=== PATIENT | male | born 1990 | race Two or more races ===

== ENCOUNTER 2024-11-28 03:22 | Emergency (ER) | payer OTHER, SELFPAY ==
[2024-11-28] VITALS (11 sets, daily range): BP systolic 109–142; BP diastolic 71–99; PULSE 77–96; RESP 14–16; TEMP 36.7–37; O2SAT 96–100; BMI 30.9
--- NOTE | 2024-11-28 03:44 | EKG12_ITS ---
Test Reason : CP Blood Pressure : */* mmHG Vent. Rate : 80 BPM Atrial Rate : 80 BPM P-R Int : 166 ms QRS Dur : 98 ms QT Int : 372 ms P-R-T Axes : 44 50 49 degrees QTcB Int : 429 ms Normal sinus rhythm Normal ECG Confirmed by JO-ANN TATUM, BRIELLE ([id number]), dealer accounts investigator ANUP WHEELER ([id number]) on 11/30/2024 1:19:50 PM Referred By: ABHISHEK Confirmed By: BRIELLE BUSCH MD
[2024-11-28 03:54] LABS: Hematocrit 44.9 % (40-54); Hemoglobin 14.9 g/dL (13.0-16.5); Immature Granulocytes Count 0.040 X10^3/uL (0.0-0.0); Mean Corp Hgb Conc 33.2 g/dL (32-36); Mean Corpuscular Volume 78.2 fL (80-94); Mean Platelet Vol. 9.4 fl (6.2-12.0); NRBC Flagged by Analyzer 0 % (0-5); Platelet Count 292 K/mm3 (150-450); RBC Distribution Width CV 13.6 % (11.6-14.6); RBC Distribution Width SD 38.5 fl (35.1-43.9); Red Blood Count 5.74 M/mm3 (4.6-6.2); White Blood Count 8.3 K/mm3 (4.4-11.0)
[2024-11-28] MEDS: 0.9% Normal Saline (1000mL) 1,000 ML 1000 ML IV (03:57)
[2024-11-28 04:17] LABS: AST(SGOT) 17 U/L (<=37); Alanine Aminotransfer ALT/SGPT 27 U/L (<=46); Albumin, Serum 5.2 g/dL (3.5-5.0); Alkaline Phosphatase 74 U/L (40-129); Anion Gap 15 (5-15); BUN 9 mg/dL (4-19); BUN/Creat Ratio 8.1 RATIO (10-20); Calcium,Total 9.8 mg/dL (7.6-11.0); Carbon Dioxide 19.9 mmol/L (21.0-32.0); Chloride 104 mmol/L (98-108); Estimated Creatinine Clearance 103.92 ml/min (50-250); Globulin 3.0 g/dL (2.2-4.2); Glucose 92 mg/dL (70-99); Lipase 60 U/L (13-75); Potassium 3.7 mmol/L (3.3-5.1)
--- NOTE | 2024-11-28 04:24 | EDS_ITS ---
HPI <Dr. Arelis Stevens, DO - Last Filed: 11/28/24 07:58> History of Present Illness Chief Complaint: Chest Pain Informant: patient and EMS Narrative Narrative: Patient is a 34-year-old male with history of anxiety, H. pylori infection, back pain and recurrent episodes of abdominal pain, left-sided abdominal pain as well as chest pain. This is the patient's fifth ER visit in the past 4 days for similar symptoms. He was seen twice at [facility] in [facility] for active retching, nausea and vomiting. He was treated with droperidol, Benadryl and fluids as well as lab work, EKG. His total bili was minimally elevated at 1.9 he had a negative COVID-19 influenza swab. I was discharged home and thought to questionably have hyperemesis syndrome however he only reports intermittent THC use. He does have an appointment with [facility]olin[facility] L[facility], Dr. Cathleen Carrillo on 12/02/2024. Per documentation patient is supposed to be on a course of Amoxil and clarithromycin starting on 11/24 through 12/04 presumably for treatment of H. pylori. Does not seem that patient is currently taking this however. Patient then went to [facility] 2 days ago and was admitted on the fourth for left-sided lateral chest pain is worse with deep breathing, epigastric pain and a syncopal episode. Was thought to have acute gastroenteritis versus gastritis and ultimately discharged home. Started on Protonix and Carafate. Delta high-sensitivity troponin was normal. Return to the ER last night (11/27/2024 in the evening) for similar symptoms again. He had a CTA of his chest as well as CT of his abdomen pelvis which did not show any acute process. Patient states he wanted to admit him again but he was not feeling any better and did not feel comfortable staying there so he went home but at some point called 911 and was brought to our emergency room. States that he has been in [place] area for about 8 months before that was living in [facility]. Did seek pain management for his back pain at that time. Has a hard time telling me if anything is acute or changed or why exactly he came to the ER tonight. Does report that his blood sugar was 64 for EMS and they did give him oral glucose before coming in as well as Zofran. Patient tells me that he did have COVID-19 through a positive home test about 2 weeks ago. He also tells me that the most recent time that he was treated for H. pylori was closer to 6 months ago. He does not remember if he was on an entire course for how long he took it. He notes he did have Motrin around midnight tonight. Prior similar symptoms: Yes Recent Illness/Hospitalization: Yes PFSH <Dr. Arelis Stevens, DO - Last Filed: 11/28/24 07:58> PFSH Home Medications ?Medication ?Instructions ?Recorded ?Last Taken ?Type famotidine 40 mg tablet (Pepcid) 40 mg PO DAILY #30 ta bs 11/28/12 11/27/24 Rx prochlorperazine maleate 10 mg 10 mg PO TID PRN PRN Unknown Rx tablet Nausea/Vomiting #20 tabs doxycycline monohydrate 100 mg 100 mg PO BID ##20 12/2511/27/24 Rx capsule (Monodox) hydrocodone-acetaminophen 5-325mg 1 tab PO Q6H PRN PRN Pain 3 days 11/28/24 Unknown Rx 5mg-325mg #10 TABLETS Allergy/AdvReac Type Severity Reaction Status Date / Time promethazine HCl (From AdvReac Nausea Verified 11/28/24 03:32 Phenergan) Family History no significant family his Surgical History Hx of appendectomy Hx of adenoidectomy Social History Smoking Status: Never smoker ROS <Dr. Arelis Stevens, DO - Last Filed: 11/28/24 07:58> ROS ED Constitutional Constitutional ED: Reports sweats; Denies chills or fever(s) Cardiovascular Cardiovascular: Reports chest pain; Denies palpitations Respiratory/Chest Respiratory/Chest: Reports dyspnea; Denies cough Gastrointestinal Gastrointestinal: Reports abdominal pain, nausea and vomiting; Denies diarrhea or melena Musculoskeletal Musculoskeletal: Reports back pain; Denies arthralgias Integumentary Denies rash Neurologic Neurologic: Reports weakness Psychiatric Psychiatric: Reports anxiety EXAM <Dr. Arelis Stevens, DO - Last Filed: 11/28/24 07:58> Physical Exam Const Vital Signs: 11/28/24 03:24 11/28/24 04:23 11/28/24 05:00 Temperature 98.6 F Temperature Source Oral Pulse Rate 89 80 81 Respiratory Rate 16 16 16 Blood Pressure 136/73 H 110/80 124/80 H Blood Pressure Mean 94 90 94 Pulse Ox 97 99 96 Oxygen Delivery Method Room Air Room Air Room Air 11/28/24 06:00 11/28/24 07:25 11/28/24 08:00 Temperature Temperature Source Pulse Rate 82 96 88 Respiratory Rate 16 14 16 Blood Pressure 117/72 124/84 H 124/71 H Blood Pressure Mean 87 97 88 Pulse Ox 100 98 100 Oxygen Delivery Method Room Air Room Air Room Air 11/28/24 09:00 11/28/24 10:00 11/28/24 11:00 Temperature Temperature Source Pulse Rate 77 77 88 Respiratory Rate 14 14 14 Blood Pressure 121/90 H 109/76 142/99 H Blood Pressure Mean 100 87 113 Pulse Ox 98 98 100 Oxygen Delivery Method Room Air Room Air Room Air Positive well nourished and well developed General Appearance ED: well developed and NAD HEENT Reports dry mucous membranes Mouth ED: Yes dry mucous membranes Mouth: dry mucous membranes Eyes General Eye ED: Negative for scleral icterus Neck supple and no JVD Chest Wall inspection of chest normal and palpation of chest normal Resp normal respiratory effort and clear to auscultation bilaterally Cardio regular rate, regular rhythm and no murmurs GI non-distended Inspection: Negative for abdominal distention Auscultation: normoactive bowel sounds Palpation: soft and tender epigastric and periumbilical; Negative for guarding Back/Spine no CVA tenderness Thoracic Spine / Upper Back: Negative for thoracic spinal tenderness Lumbar Spine / Lower Back: Negative for lumbar spinal tenderness Extremity normal to inspection General Extremety ED: Negative for edema General Extremity: Negative for edema Neuro oriented x3 Sensorium / Orientation: alert Motor Exam: general weakness Psych Psych Narrative: Patient mildly anxious. Intermittently is confused versus not forthcoming about his recent medical history however he does not seem to be purposely deceptive. Skin no rashes or lesions noted and no wounds General Skin Exam: Negative for jaundice <Dr. Gavino Barrios MD - Last Filed: 11/28/24 12:49> Physical Exam Const Vital Signs: 11/28/24 03:24 11/28/24 04:23 11/28/24 05:00 Temperature 98.6 F Temperature Source Oral Pulse Rate 89 80 81 Respiratory Rate 16 16 16 Blood Pressure 136/73 H 110/80 124/80 H Blood Pressure Mean 94 90 94 Pulse Ox 97 99 96 Oxygen Delivery Method Room Air Room Air Room Air 11/28/24 06:00 11/28/24 07:25 11/28/24 08:00 Temperature Temperature Source Pulse Rate 82 96 88 Respiratory Rate 16 14 16 Blood Pressure 117/72 124/84 H 124/71 H Blood Pressure Mean 87 97 88 Pulse Ox 100 98 100 Oxygen Delivery Method Room Air Room Air Room Air 11/28/24 09:00 11/28/24 10:00 11/28/24 11:00 Temperature Temperature Source Pulse Rate 77 77 88 Respiratory Rate 14 14 14 Blood Pressure 121/90 H 109/76 142/99 H Blood Pressure Mean 100 87 113 Pulse Ox 98 98 100 Oxygen Delivery Method Room Air Room Air Room Air [facility] <Dr. Arelis Stevens, DO - Last Filed: 11/28/24 07:58> [facility] Narrative Medical decision making narrative: Patient is evaluated for recurrent abdominal pain, left back pain (he states this is chronic) as well as left-sided chest pain. Does not know his family history as he is adopted but denies any known cardiac history. This is his fifth ER visit in the past 5 days for similar complaints. He has had prior lab work, troponins, EKGs, CT of the chest as well as CT abdomen pelvis which have all largely been normal. Total bilirubin is slightly uptrending from 1.9 to now 2.5. Work is otherwise largely been unremarkable. He does test positive for cannabis. Chart review does show that he has a history of H. pylori and was prescribed amoxicillin and clarithromycin for 10-day supply on 11/24 but does not sound like patient is actively taking it. In addition he has been prescribed Protonix, Carafate, Zofran and Phenergan. He states he still has a lot of nausea. Differential includes is not limited to hyperemesis syndrome, gastric ulcer, pancreatitis, biliary colic, choledocholithiasis, psychogenic cause. Patient is she given IV fluids, Zofran and Ativan. On repeat evaluation he is sleeping but when he wakes up he states he still nauseous. Lab work today shows mild elevation of his total bilirubin at 2.5 but otherwise normal. He does have 50 ketones in his urine but no signs of infection. Creatinine 1.20 on 11/24. Patient given GI cocktail but it starts having dry heaves again. Is given additional Reglan for further nausea control. Right upper quadrant ultrasound is pending at this time given that he does have a mild elevation of his total bilirubin 1 note clinical significance. As he had a CTA of his chest as well as a CT of his abdomen pelvis yesterday I do not think this needs to be repeated. Anticipate if patient continues to have severe symptoms unable to tolerate p.o. challenge will need admission for intractable nausea/vomiting and abdominal pain and for inpatient GI evaluation. Ultrasound does not show any acute process. Patient is now more tearful appearing expresses that he is feeling depressed because his mother a year ago. Will obtain social work evaluation. Patient signed out to oncoming physician pending social work recs. Patient has complained of nausea but has not had any vomiting in the emergency room. Question if this is more somatic symptoms. Lab Data Attestation: I reviewed the patient's lab results. Labs: Laboratory Results - last 24 hr 11/28/24 11/28/24 11/28/24 02:50 04:47 05:18 WBC 8.3 RBC 5.74 Hgb 14.9 Hct 44.9 MCV 78.2 L MCH 26.0 L MCHC 33.2 RDW Std Deviation 38.5 RDW Coeff of Rolando 13.6 Plt Count 292 MPV 9.4 Immature Gran % (Auto) 0.500 Neut % (Auto) 62.1 Lymph % (Auto) 31.4 [place] % (Auto) 4.9 Eos % (Auto) 0.6 Baso % (Auto) 0.5 Absolute Neuts (auto) 5.2 Absolute Lymphs (auto) 2.60 Nucleated RBC % 0 Sodium 139 Potassium 3.7 Chloride 104 Carbon Dioxide 19.9 L Anion Gap 15 BUN 9 Creatinine 1.15 Estim Creat Clear Calc 103.92 Est GFR (MDRD) Non-Af 86 BUN/Creatinine Ratio 8.1 L Glucose 92 Calcium 9.8 Total Bilirubin 2.50 H AST 17 ALT 27 Alkaline Phosphatase 74 Total Creatine Kinase 70 Troponin T High Sens < 6 Troponin T Hi Sens 2 Hr < 6 Total Protein 8.1 Albumin 5.2 H Globulin 3.0 Albumin/Globulin Ratio 1.8 Lipase 60 Urine Color Yellow Urine Clarity Clear Urine pH 6.5 Ur Specific [place] 1.010 Urine Protein 15 H Urine Glucose (UA) Normal Urine Ketones 50 H Urine Occult Blood 10 H Urine Nitrite Negative Urine Bilirubin Negative Urine Urobilinogen 1 H Ur Leukocyte Esterase Negative Urine RBC 0-5 SEEN Urine WBC 0-5 SEEN Ur Squamous Epith Cells 0 SEEN Urine Bacteria 0 SEEN Urine Mucus 0 SEEN Urine Opiates Screen NEGATIVE U Buprenorphine Qual NEGATIVE Ur Oxycodone Screen NEGATIVE Urine Methadone Screen NEGATIVE Urine Fentanyl Screen NEGATIVE Ur Barbiturates Screen NEGATIVE Ur Phencyclidine Scrn NEGATIVE Ur Amphetamines Screen NEGATIVE U Benzodiazepines Scrn NEGATIVE Urine Cocaine Screen NEGATIVE U Cannabinoids Screen PRESUMPTIVE POSITIVE 11/28/24 08:00 WBC RBC Hgb Hct MCV MCH MCHC RDW Std Deviation RDW Coeff of Rolando Plt Count MPV Immature Gran % (Auto) Neut % (Auto) Lymph % (Auto) [place] % (Auto) Eos % (Auto) Baso % (Auto) Absolute Neuts (auto) Absolute Lymphs (auto) Nucleated RBC % Sodium Potassium Chloride Carbon Dioxide Anion Gap BUN Creatinine Estim Creat Clear Calc Est GFR (MDRD) Non-Af BUN/Creatinine Ratio Glucose Calcium Total Bilirubin AST ALT Alkaline Phosphatase Total Creatine Kinase Troponin T High Sens 11 D Troponin T Hi Sens 2 Hr Total Protein Albumin Globulin Albumin/Globulin Ratio Lipase Urine Color Urine Clarity Urine pH Ur Specific [place] Urine Protein Urine Glucose (UA) Urine Ketones Urine Occult Blood Urine Nitrite Urine Bilirubin Urine Urobilinogen Ur Leukocyte Esterase Urine RBC Urine WBC Ur Squamous Epith Cells Urine Bacteria Urine Mucus Urine Opiates Screen U Buprenorphine Qual Ur Oxycodone Screen Urine Methadone Screen Urine Fentanyl Screen Ur Barbiturates Screen Ur Phencyclidine Scrn Ur Amphetamines Screen U Benzodiazepines Scrn Urine Cocaine Screen U Cannabinoids Screen Radiography Chest X-Ray - ED: 2 View, Read by ED Physician, Read by Radiologist and No Acute Disease Diagnostic Testing: Clinical Impression(s) from Imaging Studies Chest X-Ray 11/28/24 04:25 IMPRESSION: Hypoventilation. Subsegmental atelectasis left lung base. Reading Location: [facility] Gallbladder Ultrasound 11/28/24 06:35 IMPRESSION: No acute abnormality. No significant biliary ductal dilation. Reading Location: [id number] Rhythm Strip Rhythm Strip: Sinus Rhythm Rate: 80 Ectopy: None EKG Initial EKG: Attestation: I personally reviewed and interpreted this EKG as follows: Interpretation: Sinus Rhythm Comments: Normal sinus rhythm at a rate of 80 bpm Normal axis, normal intervals Normal ST segments Management Discussion w/another healthcare provider: mission worker/Case management <Dr. Gavino Barrios MD - Last Filed: 11/28/24 12:49> MDM Lab Data Labs: Laboratory Results - last 24 hr 11/28/24 11/28/24 11/28/24 02:50 04:47 05:18 WBC 8.3 RBC 5.74 Hgb 14.9 Hct 44.9 MCV 78.2 L MCH 26.0 L MCHC 33.2 RDW Std Deviation 38.5 RDW Coeff of Rolando 13.6 Plt Count 292 MPV 9.4 Immature Gran % (Auto) 0.500 Neut % (Auto) 62.1 Lymph % (Auto) 31.4 [place] % (Auto) 4.9 Eos % (Auto) 0.6 Baso % (Auto) 0.5 Absolute Neuts (auto) 5.2 Absolute Lymphs (auto) 2.60 Nucleated RBC % 0 Sodium 139 Potassium 3.7 Chloride 104 Carbon Dioxide 19.9 L Anion Gap 15 BUN 9 Creatinine 1.15 Estim Creat Clear Calc 103.92 Est GFR (MDRD) Non-Af 86 BUN/Creatinine Ratio 8.1 L Glucose 92 Calcium 9.8 Total Bilirubin 2.50 H AST 17 ALT 27 Alkaline Phosphatase 74 Total Creatine Kinase 70 Troponin T High Sens < 6 Troponin T Hi Sens 2 Hr < 6 Total Protein 8.1 Albumin 5.2 H Globulin 3.0 Albumin/Globulin Ratio 1.8 Lipase 60 Urine Color Yellow Urine Clarity Clear Urine pH 6.5 Ur Specific [place] 1.010 Urine Protein 15 H Urine Glucose (UA) Normal Urine Ketones 50 H Urine Occult Blood 10 H Urine Nitrite Negative Urine Bilirubin Negative Urine Urobilinogen 1 H Ur Leukocyte Esterase Negative Urine RBC 0-5 SEEN Urine WBC 0-5 SEEN Ur Squamous Epith Cells 0 SEEN Urine Bacteria 0 SEEN Urine Mucus 0 SEEN Urine Opiates Screen NEGATIVE U Buprenorphine Qual NEGATIVE Ur Oxycodone Screen NEGATIVE Urine Methadone Screen NEGATIVE Urine Fentanyl Screen NEGATIVE Ur Barbiturates Screen NEGATIVE Ur Phencyclidine Scrn NEGATIVE Ur Amphetamines Screen NEGATIVE U Benzodiazepines Scrn NEGATIVE Urine Cocaine Screen NEGATIVE U Cannabinoids Screen PRESUMPTIVE POSITIVE 11/28/24 08:00 WBC RBC Hgb Hct MCV MCH MCHC RDW Std Deviation RDW Coeff of Rolando Plt Count MPV Immature Gran % (Auto) Neut % (Auto) Lymph % (Auto) [place] % (Auto) Eos % (Auto) Baso % (Auto) Absolute Neuts (auto) Absolute Lymphs (auto) Nucleated RBC % Sodium Potassium Chloride Carbon Dioxide Anion Gap BUN Creatinine Estim Creat Clear Calc Est GFR (MDRD) Non-Af BUN/Creatinine Ratio Glucose Calcium Total Bilirubin AST ALT Alkaline Phosphatase Total Creatine Kinase Troponin T High Sens 11 D Troponin T Hi Sens 2 Hr Total Protein Albumin Globulin Albumin/Globulin Ratio Lipase Urine Color Urine Clarity Urine pH Ur Specific [place] Urine Protein Urine Glucose (UA) Urine Ketones Urine Occult Blood Urine Nitrite Urine Bilirubin Urine Urobilinogen Ur Leukocyte Esterase Urine RBC Urine WBC Ur Squamous Epith Cells Urine Bacteria Urine Mucus Urine Opiates Screen U Buprenorphine Qual Ur Oxycodone Screen Urine Methadone Screen Urine Fentanyl Screen Ur Barbiturates Screen Ur Phencyclidine Scrn Ur Amphetamines Screen U Benzodiazepines Scrn Urine Cocaine Screen U Cannabinoids Screen Radiography Diagnostic Testing: Clinical Impression(s) from Imaging Studies Chest X-Ray 11/28/24 04:25 IMPRESSION: Hypoventilation. Subsegmental atelectasis left lung base. Reading Location: [facility] Gallbladder Ultrasound 11/28/24 06:35 IMPRESSION: No acute abnormality. No significant biliary ductal dilation. Reading Location: [facility] Treatment and Re-Evaluation :: Patient was informed of results. He requested medicine for his flank pain. He is allergic to Phenergan. He has no history of illicit drug use. Discharge Plan Triage Chief Complaint: Chest Pain ED Provider: Arelis Stevens Dx/Rx/DC Orders Clinical Impression: Acute flank pain, Right upper quadrant abdominal pain Instructions: ED Pain, Acute, Uncertain Cause Prescriptions: New hydrocodone-acetaminophen 5-325 mg tablet 1 tab PO Q6H PRN PRN (Reason: Pain) 3 Days Qty: 10 0RF No Action famotidine [Pepcid] 40 MG tablet 40 mg PO DAILY Qty: 30 0RF prochlorperazine maleate 10 MG tablet 10 mg PO TID PRN PRN (Reason: Nausea/Vomiting) Qty: 20 0RF doxycycline monohydrate [Monodox] 100 MG capsule 100 mg PO BID Qty: 20 0RF Primary Care Provider: Eric Cleveland Referrals: Eric Cleveland MD [Primary Care Provider, Medical] - 1 Week if not improving Print Language: Tuvaluan Disposition Disposition: Home, Self Care
--- NOTE | 2024-11-28 04:25 | RAD_ITS ---
PROCEDURE: CHEST PA AND LATERAL 11/28/2024 REASON FOR EXAM: CHEST PAIN TECHNIQUE: Procedure Code: RADCXR Modality: DX Procedure: CHEST PA AND LATERAL COMPARISON: November 28, 2024 FINDINGS: Hardware: EKG leads are seen Heart: Normal-size Mediastinum: Central congestion likely on the basis of hypoventilation. Lungs: Clear except for some minimal atelectasis left lung base. Bones: The bones are unremarkable. RAD/Chest PA and Lateral IMPRESSION: Hypoventilation. Subsegmental atelectasis left lung base. Reading Location: [id number]
[2024-11-28 04:28] LABS: CPK Total, Creatine Kinase 70 U/L (24-195)
[2024-11-28 04:29] LABS: Troponin T High Sensitivity < 6 ng/L (<=22)
[2024-11-28 04:51] LABS: Color, Urine Yellow (Yellow); Glucose, Dipstick Normal (Normal); Ketone-Dipstick 50 mg/dl (Negative); Leukocyte Esterase-Dipstick Negative /ul (Negative); Mucous, Urine 0 SEEN /hpf (<or=2+); Nitrite-Dipstick Negative (Negative); Occult Blood-Urine 10 /ul (Negative); Protein-Dipstick 15 mg/dl (Negative); Specific Gravity, Urine 1.010 (1.002-1.030); Squamous Epithelial Cells - UA 0 SEEN /hpf (0-5); Urine Bilirubin Dipstick Negative (Negative)
--- OUTSIDE RECORDS SUMMARY | 2024-11-28 04:53 | XMS RPT_ITS | CCD ---
Author Organization [facility] [place] Inform ion Partnership [facility] Care Team Providers Care Soliciting Freight Agent Name Role Phone Unknown, Pcp Unavailable Unavailable Allen Billy Unavailable Unavailable Primary Care Provider Unavailsamia ocasio O'DayNidia Unavailable DO ALLEN BILLY Attending Unav ailable UNKNOWN, PCP Primary Care Unavailable O'Day, Dr. Nidia Varghese Attending Unavail able UNKNOWN, PCP Primary Care Unavailable Physician, No Pcp Primary Care Provider Unavaila RICARDO Aguirre Attending Unavailable PHYSICIAN, NO PCP Primary Care Unavailable Allergies Allergy Classification Reported Allergen(s) Allergy Type Date of Onset Reaction(s) Facility (2 sources) Promethazine Drug Allergy Itching, Hives [facility] (5 sources) Promethazine; Translations: [PROMETHAZINE] Drug Allergy 3 Unknown, Nausea And Vomiting [facility] (1 source) Contrast media Throat Swelling, Hives [facility] (2 sources) Iodinated Contrast Media Propensity to adverse reactions 5 Hives [facility] Medications Current Medications Medication Drug Class(es) Dates Sig (Normalized) Sig (Original) acetaminophen 325 mg / oxyCODONE hydrochloride 5 mg oral tablet (2 sources) Opioid Agonist Start: 09-26-2022 End: 10-01-2022 take 1 tablet by mouth every six hours as needed oxycodone-acetaminop hen 5 mg-325 mg oral tablet ; 1 tab(s) orally every 6 hours, As Needed for pain Quantity: 12 Refills: 0 Ordered: 29-Sep-2022 Brad Granados Start: 26-Sep-2022 End: 01-Oct-2022 Generic Substitution Allowed Comments: Caution federal law prohibits the transfer of this drug to any person other than the person for whom it was prescribed.May cause drowsiness. Alcohol may intensify this effect. Use care when operating dangerous machinery.This prescription cannot be refilled.This product contains acetaminophen. Do not use with any other product containing acetaminophen to prevent possible liver damage.Using more of this medication than prescribed may cause serious breathing problems. Comment on above: Caution federal law prohibits the transfer of this drug to any person other than the person for whom it was prescribed.May cause drowsiness. Alcohol may intensify this effect. Use care when operating dangerous machinery.This prescription cannot be refilled.This product contains acetaminophen. Do not use with any other product containing acetaminophen to prevent possible liver damage.Using more of this medication than prescribed may cause serious breathing problems. amoxicillin 500 mg oral tablet (2 sources) Penicillin-class Antibacterial Start: 11-24-2024 End: 12-04-2024 amoxicillin (AMOXIL) 500 mg tablet Take 2 tablets (1,000 mg total) by mouth every 12 (twelve) hours for 10 days. 40 tablet 11/24/2024 12/04/2024 Active amoxicillin 875 mg / clavulanate 125 mg oral tablet (2 sources) Penicillin-class Antibacterial Start: 09-26-2022 End: 10-08-2022 take 1 tablet by mouth twice daily at mealtime amoxicillin-clavulan ate 875 mg-125 mg oral tablet ; 1 tab(s) orally 2 times a day Quantity: 20 Refills: 0 Ordered: 29-Sep-2022 Brad Granados Start: 26-Sep-2022 End: 08-Oct-2022 Generic Substitution Allowed Comments: Finish all this medication unless otherwise directed by prescriber.Take with food or milk. Comment on above: Finish all this medi cation unless otherwise directed by prescriber.Take with food or milk. clarithromycin 500 mg oral tablet (2 sources) Macrolide Antimicrobial Start: 11-24-2024 End: 12-04-2024 take 1 tablet by mouth twice daily clarithromycin (BIAXIN) 500 mg tablet Take 1 tablet (500 mg total) by mouth 2 (two) times a day for 10 days. 20 tablet 11/24/2024 12/04/2024 Active cyclobenzaprine hydrochloride 5 mg oral tablet (1 source) Muscle Relaxant Start: 08-20-2024 End: 08-27-2024 take 1 tablet by mouth three times daily cyclobenzaprine (FLEXERIL) 5 mg tablet Take 1 tablet (5 mg total) by mouth 3 (three) times a day for 7 days. 21 each 08/20/2024 08/27/2024 Active ibuprofen 800 mg oral tablet (4 sources) Nonsteroidal Anti-inflammatory Drug Start: 08-20-2024 End: 08-27-2024 take 1 tablet by mouth three times daily ibuprofen (ADVIL,MOTRIN) 800 mg tablet Take 1 tablet (800 mg total) by mouth 3 (three) times a day for 7 days. 21 tablet 08/20/2024 08/27/2024 Active Start: 09-24-2022 End: 09-29-2022 take 1 tablet by mouth every six hours as needed ibuprofen (MOTRIN) 600 mg tablet Take 1 tablet by mouth every 6 hours as needed for pain for up to 5 days. 20 tablet 0 09/24/2022 09/29/2022 Active take 1 tablet by franicsco th every eight hours for pain ibuprofen (ADVIL,MOTRIN) 200 mg tablet Take 1 tablet (200 mg total) by mouth every 8 (eight) hours if needed for moderate pain. Active Comment on above: Take 1 tablet by francisco th every 6 hours as needed for pain for up to 5 days. ondansetron 4 mg oral tablet (3 sources) Serotonin-3 Receptor Antagonist Start: take 1 tablet by mouth once ondansetron (ZOFRAN) 4 mg tablet Take 1 tablet (4 mg total) by mouth every 12 (twelve) hours if needed for nausea or vomiting for up to 10 doses. 10 tablet 11/24/2024 Active Start: 08-20-2024 End: 08-20-2024 4 mg, intravenous, Once, On 08/20/24 at 0909, For 1 dose pantoprazole 40 mg delayed release oral tablet (2 sources) Proton Pump Inhibitor Start: 11-24-2024 End: 12-24-2024 take 1 tablet by mouth once daily before breakfast pantoprazole (PROTONIX) 40 mg EC tablet Take 1 tablet (40 mg total) by mouth 1 (one) time each day before breakfast for 30 doses. Do not crush, chew, or split. 30 each 11/24/2024 12/24/2024 Active Completed/Discontinued Medications Medication Drug Class(es) Dates Sig (Normalized) Sig (Original) diphenhydrAMINE (2 sources) Histamine-1 Receptor Antagonist Start: 11-24-2024 End: 11-24-2024 25 mg, intravenous, Once, On Mercedes 11/24/24 at 2130, For 1 dose Start: 11-24-2024 End: 11-24-2024 25 mg, intravenous, Once, On Mercedes 11/24/24 at 0440, For 1 dose 2 ml droperidol 2.5 mg/ml injection (1 source) Dopamine-2 Receptor Antagonist Start: 11-24-2024 End: 11-24-2024 1.25 mg, intravenous, Once, On [place] 11/24/24 at 2130, For 1 dose, Emergency Departments, Operating areas, and Post-operative areas (one time doses) for patients who FAIL TO SHOW ADEQUATE RESPONSE to other treatments: -For doses GREATER than OR equal to 2.5 mg, ECG monitoring should be performed prior to treatment and continued for 2 to 3 hours after completing treatment -For doses LESS than 2.5 mg, ECG monitoring is NOT required Head Pain units if other agents are unsuccessful (MAX of 2.5 mg three times daily): -Monitor ECG at baseline and daily while on regimen, Has the patient failed to show an adequate response to other treatments? (See order restrictions above): Yes, Is a droperidol dose GREATER than OR equal to 2.5 mg being ordered? No iopamidoL (ISOVUE-300) 300 mg iodine /mL (61 %) solution 100 mL (1 source) Start: 08-20-2024 End: 08-20-2024 100 mL, intravenous, Once in imaging, Starting on 08/20/24 at 1014, For 1 dose 1 ml ketorolac tromethamine 15 mg/ml cartridge (1 source) Nonsteroidal Anti-inflammatory Drug, Cyclooxygenase Inhibitor Start: 11-24-2024 End: 11-24-2024 15 mg, intravenous, Once, On [place] 11/24/24 at 0440, For 1 dose 2 ml metoclopramide 5 mg/ml injection (1 source) Dopamine-2 Receptor Antagonist Start: 11-24-2024 End: 11-24-2024 5 mg, intravenous, Once, On [place] 11/24/24 at 0440, For 1 dose, Doses LESS than or equal to 10 mg can be given IV push undiluted over 1 minute 1 ml morphine sulfate 4 mg/ml cartridge (1 source) Opioid Agonist Start: 08-20-2024 End: 08-20-2024 4 mg, intravenous, Once, On 08/20/24 at 0909, For 1 dose 1000 ml sodium chloride 9 mg/ml injection (2 sources) Start: 11-24-2024 End: 11-24-2024 1,000 mL, intravenous, at 2,000 mL/hr, Administer over 30 Minutes, Once, On [place] 11/24/24 at 0440, For 1 dose Start: 08-20-2024 End: 08-20-2024 10 mL, intravenous, Once in imaging, Starting on 08/20/24 at 1014, For 1 dose tetracycline, nystatin, hydrocortisone, diphenhydrAMINE MAGIC MOUTHWASH SUSPENSION (1 source) Start: 09-24-2022 tetracycline, nystatin, hydrocortisone, diphenhydrAMINE MAGIC MOUTHWASH SUSPENSION 5 mL twice daily. Swish and Swallow as directed. Compounding Instructions: Empty the contents of 3 capsules of Tetracycline HCl 250mg into a 180ml calvin bottle. Add 120 ml of Diphenhydramine Elixir 12.5mg/5ml and shake well. Add 0.5ml of Hydrocortisone 12mg/ml Soln. to bottle (breaks up foam). Add 30ml Ora-Sweet. Add 15ml Nystatin 100,000 Unit/ml Susp and shake well. Label bottle Shake well 165 mL 0 09/24/2022 Active Comment on above: 5 mL twice daily. Sw farhana and Swallow as directed. Compounding Instructions: Empty the contents of 3 capsules of Tetracycline HCl 250mg into a 180ml calvin bottle. Add 120 ml of Diphenhydramine Elixir 12.5mg/5ml and shake well. Add 0.5ml of Hydrocortisone 12mg/ml Soln. to bottle (breaks up foam). Add 30ml Ora-Sweet. Add 15ml Nystatin 100,000 Unit/ml Susp and shake well. Label bottle Shake well Problems Problem Classification Problem Date Documented Date Episodic/Chronic Abdominal pain (2 sources) Abdominal pain; Translations: [Unspecified abdominal pain] 11-24-2024 Episodic Allergic reactions (1 source) Radiographic dye allergy status; Translations: [Radiographic dye allergy status] Onset: 09-29-2022 Episodic Disorders of teeth and jaw (6 sources) Infection of tooth; Translations: [Acute apical periodontitis of pulpal origin] Onset: 09-26-2022 Resolved: 09-29-2022 09-29-2022 Episodic Fever of unknown origin (1 source) Fever, unspecified; Translations: [Fever, unspecified] Onset: 09-29-2022 Episodic Gastroduodenal ulcer (except hemorrhage) (1 source) Gastrointestinal ulcer 11-24-2024 Chronic Nausea and vomiting (4 sources) Nausea; Translations: [Nausea and vomiting] Onset: 09-26-2022 11-24-2024 Episodic Nonspecific chest pain (2 sources) Musculoskeletal chest pain; Translations: [Other chest pain] Onset: 08-20-2024 08-20-2024 Episodic Other liver diseases (1 source) Steatosis of liver; Translations: [Fatty (change of) liver, not elsewhere classified] 11-24-2024 Chronic Other skin disorders (1 source) Localized swelling, mass and lump, head; Translations: [Localized swelling, mass and lump, head] Onset: 09-29-2022 Episodic Residual codes; unclassified (2 sources) Chills (without fever); Translations: [Chills (without fever)] Onset: 09-26-2022 Episodic Unclassified (4 sources) TOOTH PAIN 09-26-2022 Comment on above: TOOTH PAIN Unclassified (1 source) Dental infection 09-29-2022 Results Test Name Value Interpretation Reference Range Facility Basic metabolic 2000 panelon 11-25-2024 Anion gap [Moles/Vol] 12 mmol/L 6 - [address] [facility] Calcium [Mass/Vol] 10.2 mg/dL 8.9 - 10. 3 mg/dL [facility] Chloride [Moles/Vol] 104 mmol/L 98 - 10 7 mmol/L [facility] CO2 [Moles/Vol] 22 mmol/L 22 - 32 mmol/L [facility] Creatinine [Mass/Vol] 1.20 mg/dL 0.60 - 1.30 mg/dL [facility] GFR/1.73 sq M.predicted among non-blacks MDRD (S/P/Bld) [Vol rate/Area] 82 mL/min/{1.73_m2} [facility] Comment on above: Calculation based on the Chronic Kidney Disease Epidemiology Collaboration (CKD-EPI) equation refit without adjustment for race. Glucose [Mass/Vol] 108 mg/dL High 70 - 99 mg/dL [facility] Potassium [Moles/Vol] 3.3 mmol/L Low 3.6 - 5.1 mmol/L [facility] Sodium [Moles/Vol] 138 mmol/L 136 - 145 mmol/L [facility] Urea nitrogen [Mass/Vol] 12 mg/dL 8 - 20 mg/dL [facility] Urea nitrogen/Creatinine [Mass ratio] 10.0 mg/mg Low 12.0 - 20.0 [facility] Hepatic function 2000 panelo n 11-25-2024 Albumin [Mass/Vol] 5.3 g/dL High 3.5 - 4.8 g/dL [facility] ALP [Catalytic activity/Vol] 67 U/L [facility] ALT [Catalytic activity/Vol] 28 U/L [facility] AST [Catalytic activity/Vol] 16 U/L [facility] Bilirubin [Mass/Vol] 1.9 mg/dL High 0.3 - 1 .2 mg/dL [facility] Bilirubin.direct [Mass/Vol] 0.2 mg/dL NINF - 0.5 mg/dL [facility] Bilirubin.indirect [Mass/Vol] 1.7 mg/dL High 0.0 - 1.0 mg/dL [facility] Protein [Mass/Vol] 8.5 g/dL High 6.1 - 7.9 g/dL [facility] Lipaseon 11-25-2024 Lipase [Catalytic activity/Vol] 27 U/L [facility] Lipase [Catalytic activity/V ol]on 11-25-2024 Interpretation and review of laboratory results Normal [facility] No Panel Informationon 11-25 Interpretation and review of laboratory results Abnormal [facility] 12-Lead ECGon 11-24-2024 P Wave [place] 66 degrees [facility] P-R Interval 156 ms [facility] Pathologist interpretation (Bld) [Interp] Normal sinus rhythm Normal ECG Confirmed by Randall Miles ([id number]), packaging assembler Che Calderon ([id number]) on 11/24/2024 11:32:32 AM [facility] Q-T Interval 348 ms [facility] QRS Duration 94 ms [facility] QTc 437 ms [facility] R [place] 72 degrees [facility] [employer] Troponin T.cardiac [Mass/Vol] 60 ug/L degrees [facility] CBC W Differential panel, dc thod unspecified (Bld)on 11-24-2024 Basophils (Bld) [#/Vol] 0.04 10*3/uL [facility] Basophils/100 WBC (Bld) 0.4 % 0.0 - 2.0 % [facility] Eosinophils (Bld) [#/Vol] 0.04 10*3/uL [facility] Eosinophils/100 WBC (Bld) 0.4 % 0.0 - 7.0 % [facility] Erythrocyte distribution width (RBC) [Ratio] 13.6 % 11.0 - 14.8 % [facility] Hematocrit (Bld) [Volume fraction] 46.4 % 39.0 - 49.0 % [facility] Hemoglobin (Bld) [Mass/Vol] 15.9 g/dL 13.5 - 17.5 g/dL [facility] Immature granulocytes (Bld) [#/Vol] 0.04 10*3/uL [facility] Immature granulocytes/100 WBC (Bld) 0.4 % 0.0 - 1.2 % [facility] Interpretation and review of laboratory results Abnormal [facility] Lymphocytes (Bld) [#/Vol] 2.43 10*3/uL [facility] Lymphocytes/100 WBC (Bld) 21.7 % 17.9 - 49.6 % [facility] MCH (RBC) [Entitic mass] 26.2 pg Low [facility] MCHC (RBC) [Mass/Vol] 34.3 g/dL 30.8 - 35.3 g/dL [facility] MCV (RBC) [Entitic vol] 76.3 fL Low [facility] Monocytes (Bld) [#/Vol] 0.49 10*3/uL [facility] Monocytes/100 WBC (Bld) 4.4 % 0.0 - 12.0 % [facility] Neutrophils (Bld) [#/Vol] 8.14 10*3/uL High [facility] Neutrophils/100 WBC (Bld) 72.7 % 38.1 - 75.5 % [facility] Platelet mean volume (Bld) [Entitic vol] 9.2 fL [facility] Platelets (Bld) [#/Vol] 281 10*3/uL [facility] RBC (Bld) [#/Vol] 6.08 10*6/uL [facility] WBC (Bld) [#/Vol] 11.2 10*3/uL [facility] Basophils (Bld) [#/Vol] 0.06 10*3/uL [facility] Basophils/100 WBC (Bld) 0.4 % 0.0 - 2.0 % [facility] Eosinophils (Bld) [#/Vol] 0.08 10*3/uL [facility] Eosinophils/100 WBC (Bld) 0.5 % 0.0 - 7.0 % [facility] Erythrocyte distribution width (RBC) [Ratio] 13.4 % 11.0 - 14.8 % [facility] Hematocrit (Bld) [Volume fraction] 48.8 % 39.0 - 49.0 % [facility] Hemoglobin (Bld) [Mass/Vol] 16.4 g/dL 13.5 - 17.5 g/dL [facility] Immature granulocytes (Bld) [#/Vol] 0.06 10*3/uL [facility] Immature granulocytes/100 WBC (Bld) 0.4 % 0.0 - 1.2 % [facility] Interpretation and review of laboratory results Abnormal [facility] Lymphocytes (Bld) [#/Vol] 3.52 10*3/uL [facility] Lymphocytes/100 WBC (Bld) 23.6 % 17.9 - 49.6 % [facility] MCH (RBC) [Entitic mass] 25.7 pg Low [facility] MCHC (RBC) [Mass/Vol] 33.6 g/dL 30.8 - 35.3 g/dL [facility] MCV (RBC) [Entitic vol] 76.6 fL Low [facility] Monocytes (Bld) [#/Vol] 0.55 10*3/uL [facility] Monocytes/100 WBC (Bld) 3.7 % 0.0 - 12.0 % [facility] Neutrophils (Bld) [#/Vol] 10.63 10*3/uL High [facility] Neutrophils/100 WBC (Bld) 71.4 % 38.1 - 75.5 % [facility] Platelet mean volume (Bld) [Entitic vol] 9.1 fL [facility] Platelets (Bld) [#/Vol] 306 10*3/uL [facility] RBC (Bld) [#/Vol] 6.37 10*6/uL [facility] WBC (Bld) [#/Vol] 14.9 10*3/uL [facility] CT Abdomen and Pelvis GRACE cintron 11-24-2024 1. No acute abnormality identified to account for the patient's symptoms. 2. Hepatic steatosis. Correlation with liver function tests is recommended. -------- FINAL REPORT -------- Dictated By: Freddie Sellers Dictated Date: 11/24/2024 06:05 Assigned Physician: Freddie Sellers Reviewed and Electronically Signed By: Freddie Sellers Signed Date: 11/24/2024 06:10 Workstation ID: [id number] Transcribed By: Self Edit Transcribed Date: 11/24/2024 06:[address] OF THE ABDOMEN AN D PELVIS WITHOUT CONTRAST: 11/24/2024 5:54 AM COMPARISON: 08/20/2024 CLINICAL INFORMATION: Abdominal pain. TECHNIQUE: Routine unenhanced CT imaging of the abdomen and pelvis was performed, with multiplanar reconstruction. The lack of intravenous and oral contrast limits the examination. FINDINGS: Visualized portions of the heart, mediastinum, and lungs are normal. There is mild gynecomastia bilaterally, unchanged. There is decreased attenuation of the liver relative to the spleen, indicative of hepatic steatosis. No intrahepatic mass or biliary dilation is identified. The gallbladder, pancreas, spleen, adrenal glands, and kidneys are normal. No urinary tract calculi are identified, and there are no findings of urinary tract obstruction. The stomach, small bowel, and small bowel mesentery are normal. The appendix is surgically absent. A small amount of gas and stool is present within the colon. There is no colonic wall thickening, pericolonic inflammation, or colonic diverticulosis. No pneumoperitoneum or ascites is present. The urinary bladder, prostate gland, and seminal vesicles are normal. A few phleboliths are present within the deep pelvis. The visualized aorta and its major arterial branches are normal in diameter and free of atherosclerotic calcification. No enlarged retroperitoneal or inguinal lymph nodes are present. No abdominal wall hernia is identified. There is minimal multilevel degenerative change within the lower thoracic and lumbar spine. No acute osseous abnormality is identified. Conservis Freddie Sellers MD - 11/24/2024 CT OF THE ABDOMEN AND PELVIS WITHOUT CONTRAST: 11/24/2024 5:54 AM COMPARISON: 08/20/2024 CLINICAL INFORMATION: Abdominal pain. TECHNIQUE: Routine unenhanced CT imaging of the abdomen and pelvis was performed, with multiplanar reconstruction. The lack of intravenous and oral contrast limits the examination. FINDINGS: Visualized portions of the heart, mediastinum, and lungs are normal. There is mild gynecomastia bilaterally, unchanged. There is decreased attenuation of the liver relative to the spleen, indicative of hepatic steatosis. No intrahepatic mass or biliary dilation is identified. The gallbladder, pancreas, spleen, adrenal glands, and kidneys are normal. No urinary tract calculi are identified, and there are no findings of urinary tract obstruction. The stomach, small bowel, and small bowel mesentery are normal. The appendix is surgically absent. A small amount of gas and stool is present within the colon. There is no colonic wall thickening, pericolonic inflammation, or colonic diverticulosis. No pneumoperitoneum or ascites is present. The urinary bladder, prostate gland, and seminal vesicles are normal. A few phleboliths are present within the deep pelvis. The visualized aorta and its major arterial branches are normal in diameter and free of atherosclerotic calcification. No enlarged retroperitoneal or inguinal lymph nodes are present. No abdominal wall hernia is identified. There is minimal multilevel degenerative change within the lower thoracic and lumbar spine. No acute osseous abnormality is identified. IMPRESSION: 1. No acute abnormality identified to account for the patient's symptoms. 2. Hepatic steatosis. Correlation with liver function tests is recommended. -------- FINAL REPORT -------- Dictated By: Freddie Sellers Dictated Date: 11/24/2024 06:05 Assigned Physician: Freddie Sellers Reviewed and Electronically Signed By: Freddie Sellers Signed Date: 11/24/2024 06:10 Workstation ID: [id number] Transcribed By: Self Edit Transcribed Date: 11/24/2024 06:05 [facility] Radiology Study observation (narrative) [facility] CT Abdomen and Pelvis WO con trastOrdered By: Freddie Sellers on 11-24-2024 [facility] Work Phone: Comprehensive metabolic 2000 panelon 11-24-2024 Albumin [Mass/Vol] 5.4 g/dL High 3.5 - 4.8 g/dL [facility] ALP [Catalytic activity/Vol] 71 U/L [facility] ALT [Catalytic activity/Vol] 34 U/L [facility] Anion gap [Moles/Vol] 12 mmol/L 6 - 18 [facility] AST [Catalytic activity/Vol] 18 U/L [facility] Bilirubin [Mass/Vol] 1.9 mg/dL High 0.3 - 1 .2 mg/dL [facility] Calcium [Mass/Vol] 10.5 mg/dL High 8.9 - 10. 3 mg/dL [facility] Chloride [Moles/Vol] 101 mmol/L 98 - 10 7 mmol/L [facility] CO2 [Moles/Vol] 24 mmol/L 22 - 32 mmol/L [facility] Creatinine [Mass/Vol] 1.22 mg/dL 0.60 - 1.30 mg/dL [facility] GFR/1.73 sq M.predicted among non-blacks MDRD (S/P/Bld) [Vol rate/Area] 80 mL/min/{1.73_m2} - [facility] Comment on above: Calculation based on the Chronic Kidney Disease Epidemiology Collaboration (CKD-EPI) equation refit without adjustment for race. Glucose [Mass/Vol] 109 mg/dL High 70 - 99 mg/dL [facility] [employer] Interpretation and review of laboratory results Abnormal [facility] Potassium [Moles/Vol] 3.8 mmol/L 3.6 - 5.1 mmol/L [facility] Protein [Mass/Vol] 8.6 g/dL High 6.1 - 7.9 g/dL [facility] Sodium [Moles/Vol] 137 mmol/L 136 - 145 mmol/L [facility] Urea nitrogen [Mass/Vol] 12 mg/dL 8 - 20 mg/dL [facility] [employer] Urea nitrogen/Creatinine [Mass ratio] 9.8 mg/mg Low 12.0 - 20.0 [facility] CreatinineOrdered By: Shaji Mead on 11-24-2024 Creatinine [Mass/Vol] 1.20 mg/dL 0.60 - 1.30 mg/dL [facility] Interpretation and review of laboratory results Normal [facility] ECG 12 leadon 11-24-2024 P Wave [place] 51 degrees [facility] 154 ms [facility] th Pathologist interpretation (Bld) [Interp] Normal sinus rhythm RSR' or QR pattern in V1 suggests right ventricular conduction delay Borderline ECG Confirmed by Carlos Avalos ([id number]), packaging assembler Che Calderon ([id number]) on 11/24/2024 11:13:49 PM [facility] Q-T Interval 358 ms [facility] QRS Duration 96 ms [facility] QTc 445 ms [facility] R [place] 66 degrees [facility] Troponin T.cardiac [Mass/Vol] 60 ug/L degrees [facility] Electrolytes panel (Bld)on 1 Chloride [Moles/Vol] 106 mmol/L [facility] Potassium [Moles/Vol] 3.5 mmol/L Low 3.6 - 5.1 mmol/L [facility] Sodium [Moles/Vol] 144 mmol/L 136 - 145 mmol/L [facility] FLUAV and FLUBV RNA SHIMA+prob e Nom (Unsp spec)on 11-24-2024 FLUAV RNA SHIMA+probe Ql (Resp) Negative Negative [facility] FLUBV RNA SHIMA+probe Ql (Resp) Negative Negative [facility] Interpretation and review of laboratory results Normal [facility] Molecular testing utilizing isothermal nucleic acid amplification technology. [facility] Glucose (BldC) [Mass/Vol]on 11-24-2024 Glucose [Mass/Vol] 112 mg/dL High 70 - 99 mg/dL [facility] Laboratory - Coagulationon 1 ACT Coag (Bld) 93 s BPM [facility] ACT Coag (Bld) 95 s BPM [facility] Lipaseon 11-24-2024 Lipase [Catalytic activity/Vol] 32 U/L [facility] Lipase [Catalytic activity/V ol]on 11-24-2024 Interpretation and review of laboratory results Normal [facility] No Panel Informationon 11-24 Interpretation and review of laboratory results Abnormal [facility] SARS-CoV-2 (COVID-19) RNA NA A+probe Ql (Resp)on 11-24-2024 Interpretation and review of laboratory results Normal [facility] SARS-CoV-2 (COVID-19) RdRp gene SHIMA+probe Ql (Resp) Not detected Not Detected [facility] Molecular testing utilizing isothermal nucleic acid amplification technology. [employer] Tropinin I.cardiac panel Hig h sensitivity methodon 11-24-2024 Interpretation and review of laboratory results Normal [facility] Troponin I.cardiac High sensitivity method [Mass/Vol] 3 ng/L NINF - 20 ng/L [employer] XR Chest Single viewon 11-24 No acute findings. -------- FINAL REPORT -------- Dictated By: Tom Arteaga Dictated Date: 11/24/2024 05:10 Assigned Physician: Tom Arteaga Reviewed and Electronically Signed By: Tom Arteaga Signed Date: 11/24/2024 05:12 Workstation ID: [id number] Transcribed By: Self Edit Transcribed Date: 11/24/2024 05:10 [employer] EXAMINATION TYPE: XR CHEST 1 VIEW DATE OF EXAM : 11/24/2024 5:01 AM HISTORY: Shortness of breath COMPARISON: CT and radiograph dated 08/12/2024 FINDINGS: No pneumothorax, pleural effusion, or consolidation demonstrated. Unchanged cardiac silhouette. No acute osseous abnormality identified. POWERSCRIBE Tom Arteaga MD - 11/24/2024 EXAMINATION TYPE: XR CHEST 1 VIEW DATE OF EXAM : 11/24/2024 5:01 AM HISTORY: Shortness of breath COMPARISON: CT and radiograph dated 08/12/2024 FINDINGS: No pneumothorax, pleural effusion, or consolidation demonstrated. Unchanged cardiac silhouette. No acute osseous abnormality identified. IMPRESSION: No acute findings. -------- FINAL REPORT -------- Dictated By: Tom Arteaga Dictated Date: 11/24/2024 05:10 Assigned Physician: Tom Arteaga Reviewed and Electronically Signed By: Tom Arteaga Signed Date: 11/24/2024 05:12 Workstation ID: [id number] Transcribed By: Self Edit Transcribed Date: 11/24/2024 05:10 [employer] Radiology Study observation (narrative) [facility] XR Chest Single viewOrdered By: Tom Arteaga on 11-24-2024 [facility] Work Phone: Basic metabolic 2000 panelon 08-20-2024 Anion gap [Moles/Vol] 7 mmol/L 6 - 18 [employer] Calcium [Mass/Vol] 9.9 mg/dL 8.9 - 10. 3 mg/dL [employer] Chloride [Moles/Vol] 104 mmol/L 98 - 10 7 mmol/L [employer] CO2 [Moles/Vol] 26 mmol/L 22 - 32 mmol/L [employer] Creatinine [Mass/Vol] 1.07 mg/dL 0.60 - 1.30 mg/dL [facility] GFR/1.73 sq M.predicted among non-blacks MDRD (S/P/Bld) [Vol rate/Area] 94 mL/min/{1.73_m2} - PINF [facility] Comment on above: Calculation based on the Chronic Kidney Disease Epidemiology Collaboration (CKD-EPI) equation refit without adjustment for race. Glucose [Mass/Vol] 114 mg/dL High 70 - 99 mg/dL [place] [facility] Interpretation and review of laboratory results Abnormal [employer] Potassium [Moles/Vol] 3.8 mmol/L 3.6 - 5.1 mmol/L [employer] Sodium [Moles/Vol] 137 mmol/L 136 - 145 mmol/L [employer] Urea nitrogen [Mass/Vol] 9 mg/dL 8 - 20 mg/dL [employer] Urea nitrogen/Creatinine [Mass ratio] 8.4 mg/mg Low 12.0 - 20.0 [employer] CBC W Differential panel, dc thod unspecified (Bld)on 08-20-2024 Basophils (Bld) [#/Vol] 0.03 10*3/uL [employer] Basophils/100 WBC (Bld) 0.4 % 0.0 - 2.0 % [employer] Eosinophils (Bld) [#/Vol] 0.09 10*3/uL [facility] Eosinophils/100 WBC (Bld) 1.2 % 0.0 - 7.0 % [employer] Erythrocyte distribution width (RBC) [Ratio] 13.7 % 11.0 - 14.8 % [employer] Hematocrit (Bld) [Volume fraction] 47.3 % 39.0 - 49.0 % [facility] Hemoglobin (Bld) [Mass/Vol] 15.8 g/dL 13.5 - 17.5 g/dL [facility] Immature granulocytes (Bld) [#/Vol] 0.05 10*3/uL [facility] Immature granulocytes/100 WBC (Bld) 0.7 % 0.0 - 1.2 % [facility] Interpretation and review of laboratory results Abnormal [facility] Lymphocytes (Bld) [#/Vol] 3.24 10*3/uL [facility] Lymphocytes/100 WBC (Bld) 42.8 % 17.9 - 49.6 % [facility] MCH (RBC) [Entitic mass] 26.3 pg Low [facility] MCHC (RBC) [Mass/Vol] 33.4 g/dL 30.8 - 35.3 g/dL [facility] MCV (RBC) [Entitic vol] 78.8 fL Low [facility] Monocytes (Bld) [#/Vol] 0.38 10*3/uL [facility] Monocytes/100 WBC (Bld) 5 % 0.0 - 12.0 % [facility] Neutrophils (Bld) [#/Vol] 3.78 10*3/uL [facility] Neutrophils/100 WBC (Bld) 49.9 % 38.1 - 75.5 % [facility] Platelet mean volume (Bld) [Entitic vol] 9.1 fL [facility] Platelets (Bld) [#/Vol] 257 10*3/uL [facility] RBC (Bld) [#/Vol] 6 10*6/uL High [facility] WBC (Bld) [#/Vol] 7.6 10*3/uL [facility] Basophils (Bld) [#/Vol] 0.03 10*3/uL Normal 0.00-0.20 [facility] Comment on above: Performed By: #### 6 9742-5 #### [facility] [address] [place] [address] Basophils/100 WBC (Bld) 0.4 % Normal 0.0-2.0 [facility] Comment on above: Performed By: #### 6 9742-5 #### [facility] [address] [place] [address] Eosinophils (Bld) [#/Vol] 0.09 10*3/uL Normal 0.00-0.70 [facility] Comment on above: Performed By: #### 6 9742-5 #### [facility] [address] [place] [address] Eosinophils/100 WBC (Bld) 1.2 % Normal 0.0-7.0 [facility] Comment on above: Performed By: #### 6 9742-5 #### [facility] [address] [place] [address] Erythrocyte distribution width (RBC) [Ratio] 13.7 % Normal 11.0-14.8 [facility] Comment on above: Performed By: #### 6 9742-5 #### [facility] [address] [place] [address]642 Hematocrit (Bld) [Volume fraction] 47.3 % Normal 39.0-49.0 [facility] Comment on above: Performed By: #### 6 9742-5 #### [facility] [address] [place] [address]58 Hemoglobin (Bld) [Mass/Vol] 15.8 g/dL Normal 13.5-17.5 [facility] Comment on above: Performed By: #### 6 9742-5 #### [facility] [address] [place] [address]246 Immature granulocytes (Bld) [#/Vol] 0.05 10*3/uL Normal 0.00-0.10 [facility] Comment on above: Performed By: #### 6 9742-5 #### [facility] [address] [place] [address]368 Immature granulocytes/100 WBC (Bld) 0.7 % Normal 0.0-1.2 [facility] Comment on above: Performed By: #### 6 9742-5 #### [facility] [address] [place] [address] 99642 Lymphocytes (Bld) [#/Vol] 3.24 10*3/uL Normal 1.00-4.80 [facility] Comment on above: Performed By: #### 6 9742-5 #### [facility] [address] [place] [address] 74383 Lymphocytes/100 WBC (Bld) 42.8 % Normal 17.9-49.6 [facility] Comment on above: Performed By: #### 6 9742-5 #### [facility] [address] [place] [address] 56732 MCH 26.3 pcg Low 27.0-34.0 [facility] Comment on above: Performed By: #### 6 9742-5 #### [facility] [address] [place] [address] 66134 MCHC (RBC) [Mass/Vol] 33.4 g/dL Normal 30.8-35.3 [facility] Comment on above: Performed By: #### 6 9742-5 #### [facility] [address] [place] [address] 64008 MCV (RBC) [Entitic vol] 78.8 fL Low 80.0-97.0 [facility] Comment on above: Performed By: #### 6 9742-5 #### [facility] [address] [place] [address] 45668 Monocytes (Bld) [#/Vol] 0.38 10*3/uL Normal 0.00-0.90 [facility] Comment on above: Performed By: #### 6 9742-5 #### [facility] [address] [place] [address] 22982 Monocytes/100 WBC (Bld) 5.0 % Normal 0.0-12.0 [facility] Comment on above: Performed By: #### 6 9742-5 #### [facility] [address] [place] [address] 24257 Neutrophils Absolute 3.78 K/mcL Normal 1.80-7.70 [facility] Comment on above: Performed By: #### 6 9742-5 #### [facility] [address] [place] [address] 84551 Neutrophils/100 WBC (Bld) 49.9 % Normal 38.1-75.5 [facility] Comment on above: Performed By: #### 6 9742-5 #### [facility] [address] [place] [address] 32133 Platelet mean volume (Bld) [Entitic vol] 9.1 fL Normal 6.2-12.1 [facility] Comment on above: Performed By: #### 6 9742-5 #### [facility] [address] [place] [address] 10273 Platelets (Bld) [#/Vol] 257 10*3/uL Normal 142-424 [facility] Comment on above: Performed By: #### 6 9742-5 #### [facility] [address] [place] [address] 20170 RBC (Bld) [#/Vol] 6.00 10*6/uL High 4.30-5.70 [facility] Comment on above: Performed By: #### 6 9742-5 #### [facility] [address] [place] [address] 46489 WBC (Bld) [#/Vol] 7.6 10*3/uL Normal 4.6-10.2 [facility] Comment on above: Performed By: #### 6 9742-5 #### [facility] [address] [place] [address] ABDOMEN PELVIS W CONTRAST on 08-20-2024 CT ABDOMEN PELVIS W CONTRAST EXAMINATION TYPE: CT ABDOMEN PELVIS W CONTRAST DATE OF EXAM : 08/20/2024 10:12 AM HISTORY: LEFT upper quadrant pain x3 days COMPARISON: NONE FINDINGS: Liver, gallbladder, pancreas, spleen and adrenal glands appear normal. Kidneys symmetric in size and excretion without evidence of hydronephrosis or perinephric fluid. Proximal ureters nondilated. Urinary bladder nondistended. Prostate within normal limits of size. No free pelvic fluid nor pathologically enlarged inguinal lymph nodes demonstrated. Unopacified small bowel and colon are nondilated. Status post appendectomy. No free intraperitoneal air nor ascites is demonstrated. Abdominal aorta is nonaneurysmal. No cardiomegaly. Mild bilateral gynecomastia. No acute osseous findings. IMPRESSION: No acute intra-abdominal or pelvic findings. Mild bilateral gynecomastia. -------- FINAL REPORT -------- Dictated By: Ricci Hartman Dictated Date: 08/20/2024 11:03 Assigned Physician: Ricci Hartman Reviewed and Electronically Signed By: Ricci Hartman Signed Date: 08/20/2024 11:06 Workstation ID: [id number] Transcribed By: Self Edit Transcribed Date: 08/20/2024 11:03 Normal [facility] CT Abdomen and Pelvis W cont rast Marco 08-20-2024 No acute intra-abdominal or pelvic findings. Mild bilateral gynecomastia. -------- FINAL REPORT -------- Dictated By: Ricci Hartman Dictated Date: 08/20/2024 11:03 Assigned Physician: Ricci Hartman Reviewed and Electronically Signed By: Ricci Hartman Signed Date: 08/20/2024 11:06 Workstation ID: [id number] Transcribed By: Self Edit Transcribed Date: 08/20/2024 11:03 POWERSCRIBE EXAMINATION TYPE: CT ABDOMEN PELVIS W CONTRAST DATE OF EXAM : 08/20/2024 10:12 AM HISTORY: LEFT upper quadrant pain x3 days COMPARISON: NONE FINDINGS: Liver, gallbladder, pancreas, spleen and adrenal glands appear normal. Kidneys symmetric in size and excretion without evidence of hydronephrosis or perinephric fluid. Proximal ureters nondilated. Urinary bladder nondistended. Prostate within normal limits of size. No free pelvic fluid nor pathologically enlarged inguinal lymph nodes demonstrated. Unopacified small bowel and colon are nondilated. Status post appendectomy. No free intraperitoneal air nor ascites is demonstrated. Abdominal aorta is nonaneurysmal. No cardiomegaly. Mild bilateral gynecomastia. No acute osseous findings. POWERSCRIBE Ricci Hartman MD - 08/20/2024 EXAMINATION TYPE: CT ABDOMEN PELVIS W CONTRAST DATE OF EXAM : 08/20/2024 10:12 AM HISTORY: LEFT upper quadrant pain x3 days COMPARISON: NONE FINDINGS: Liver, gallbladder, pancreas, spleen and adrenal glands appear normal. Kidneys symmetric in size and excretion without evidence of hydronephrosis or perinephric fluid. Proximal ureters nondilated. Urinary bladder nondistended. Prostate within normal limits of size. No free pelvic fluid nor pathologically enlarged inguinal lymph nodes demonstrated. Unopacified small bowel and colon are nondilated. Status post appendectomy. No free intraperitoneal air nor ascites is demonstrated. Abdominal aorta is nonaneurysmal. No cardiomegaly. Mild bilateral gynecomastia. No acute osseous findings. IMPRESSION: No acute intra-abdominal or pelvic findings. Mild bilateral gynecomastia. -------- FINAL REPORT -------- Dictated By: Ricci Hartman Dictated Date: 08/20/2024 11:03 Assigned Physician: Ricci Hartman Reviewed and Electronically Signed By: Ricci Hartman Signed Date: 08/20/2024 11:06 Workstation ID: [id number] Transcribed By: Self Edit Transcribed Date: 08/20/2024 11:03 [facility] Radiology Study observation (narrative) [facility] CT Abdomen and Pelvis W cont rast IVOrdered By: Ricci Hartman on 08-20-2024 [facility] Work Phone: ECG 12 leadon 08-20-2024 P Wave [place] 54 degrees [facility] h P-R Interval 152 ms [facility] Pathologist interpretation (Bld) [Interp] Normal sinus rhythm Normal ECG Confirmed by RICARDO MAI ([id number]), packaging assembler Che Calderon ([id number]) on 08/20/2024 11:14:55 AM [facility] Q-T Interval 356 ms [facility] QRS Duration 92 ms [facility] QTc 428 ms [facility] R [place] 64 degrees [facility] Troponin T.cardiac [Mass/Vol] 57 ug/L degrees [facility] - Coagulationon 0 08-20-2024 ACT Coag (Bld) 87 s BPM [facility] Lipaseon 08-20-2024 Lipase [Catalytic activity/Vol] 45 U/L [facility] Lipase [Catalytic activity/V ol]on 08-20-2024 Interpretation and review of laboratory results Normal [facility] Magnesiumon 08-20-2024 Magnesium [Mass/Vol] 2.1 mg/dL 1.8 - 2 .5 mg/dL [facility] Magnesium [Mass/Vol]on 08-20 Interpretation and review of laboratory results Normal [facility] Lipase [Catalytic activity/Vol] 45 U/L Normal [facility] Comment on above: Performed By: #### 1 9123-9 #### [facility] [address] [place] [address] No Panel Informationon 08-20 [facility] Tropinin I.cardiac panel Hig h sensitivity methodon 08-20-2024 Interpretation and review of laboratory results Normal [facility] Troponin I.cardiac High sensitivity method [Mass/Vol] 3 ng/L NINF - 20 ng/L [facility] XR CHEST 1 VIEWon 08-20-2024 XR CHEST 1 VIEW EXAM: XR CHEST 1 VIE W. DATE OF EXAM: 08/20/2024 8:49 AM. HISTORY: chest pain. COMPARISON: None. FINDINGS: The cardiomediastinal silhouette is within normal limits. No focal interstitial or airspace opacities. No pleural effusion. No pneumothorax. No acute osseous abnormalities. IMPRESSION: No focal airspace opacity or consolidation. -------- FINAL REPORT -------- Dictated By: Bhanu العلي Dictated Date: 08/20/2024 09:44 Assigned Physician: Bhanu العلي Reviewed and Electronically Signed By: Bhanu العلي Signed Date: 08/20/2024 09:45 Workstation ID: [id number] Transcribed By: Self Edit Transcribed Date: 08/20/2024 09:44 Normal [facility] XR Chest Single viewon 08-20 No focal airspace opacity or consolidation. -------- FINAL REPORT -------- Dictated By: Bhanu العلي Dictated Date: 08/20/2024 09:44 Assigned Physician: Bhanu العلي Reviewed and Electronically Signed By: Bhanu العلي Signed Date: 08/20/2024 09:45 Workstation ID: [id number] Transcribed By: Self Edit Transcribed Date: 08/20/2024 09:44 POWERSCRIBE EXAM: XR CHEST 1 VIE W. DATE OF EXAM: 08/20/2024 8:49 AM. HISTORY: chest pain. COMPARISON: None. FINDINGS: The cardiomediastinal silhouette is within normal limits. No focal interstitial or airspace opacities. No pleural effusion. No pneumothorax. No acute osseous abnormalities. POWERSCRIBE Bhanu العلي MD - 08/20/2024 EXAM: XR CHEST 1 VIEW. DATE OF EXAM: 08/20/2024 8:49 AM. HISTORY: chest pain. COMPARISON: None. FINDINGS: The cardiomediastinal silhouette is within normal limits. No focal interstitial or airspace opacities. No pleural effusion. No pneumothorax. No acute osseous abnormalities. IMPRESSION: No focal airspace opacity or consolidation. -------- FINAL REPORT -------- Dictated By: Bhanu العلي Dictated Date: 08/20/2024 09:44 Assigned Physician: Bhanu العلي Reviewed and Electronically Signed By: Bhanu العلي Signed Date: 08/20/2024 09:45 Workstation ID: [id number] Transcribed By: Self Edit Transcribed Date: 08/20/2024 09:44 [facility] Radiology Study observation (narrative) [facility] XR Chest Single viewOrdered By: Bhanu العلي on 08-20-2024 [facility] Work Phone: [facility] 09-29-2022 Erythrocyte distribution width (RBC) [Ratio] 13.2 % Normal 11.5 - 14.5 [facility] Comment on above: Performed By: #### C BC #### [address] [address] Hematocrit (Bld) [Volume fraction] 42.1 % Normal 41.0 - 52.0 [facility] Comment on above: Performed By: #### C BC #### [address] [address] Hemoglobin (Bld) [Mass/Vol] 13.9 g/dL Normal 13.5 - 17.5 [facility] Comment on above: Performed By: #### C BC #### [address] [address] MCHC (RBC) [Mass/Vol] 33.0 g/dL Normal 32.0 - 36.0 [facility] Comment on above: Performed By: #### C BC #### [address] [address] MCV (RBC) [Entitic vol] 80 fL Normal 80 - 100 [facility] Comment on above: Performed By: #### C BC #### [address] [address] NUCLEATED RBC 0.0 /100 WBC Normal 0.0 - 0.0 [facility] Comment on above: Performed By: #### C BC #### [address] [address] Platelets (Bld) [#/Vol] 248 10*3/uL Normal 150 - 450 [facility] Comment on above: Performed By: #### C BC #### [address] [address] RBC 5.26 x10E12/L Normal 4.50 - 5.90 [facility] Comment on above: Performed By: #### C BC #### [address] [address] WBC (Bld) [#/Vol] 5.8 10*3/uL Normal 4.4 - 11.3 [facility] Comment on above: Performed By: #### C BC #### [address] [place] [address] COMPREHENSIVE PANELon 2022 Albumin [Mass/Vol] 4.5 g/dL Normal 3.4 - 5.0 [facility] Comment on above: Performed By: #### C MP #### [address] [place] [address] ALP [Catalytic activity/Vol] 56 U/L Normal 33 - 120 [facility] Comment on above: Performed By: #### C MP #### [address] [place] [address] ALT [Catalytic activity/Vol] 32 U/L Normal 10 - 52 [facility] Comment on above: Result Comment: Jocelyn ents treated with Sulfasalazine may generate falsely decreased results for ALT. Performed By: #### C MP #### [address] [place] [address] Anion gap [Moles/Vol] 10 mmol/L Normal 10 - 20 [facility] Comment on above: Performed By: #### C MP #### [address] [address] AST [Catalytic activity/Vol] 20 U/L Normal 9 - 39 [facility] Comment on above: Performed By: #### C MP #### [address] [place] [address] Bilirubin [Mass/Vol] 0.7 mg/dL Normal 0.0 - 1.2 [facility] Comment on above: Performed By: #### C MP #### [address] [place] [address] Calcium [Mass/Vol] 9.4 mg/dL Normal 8.6 - 10.3 [facility] Comment on above: Performed By: #### C MP #### [address] [place] [address] Chloride [Moles/Vol] 104 mmol/L Normal 98 - 107 [facility] Comment on above: Performed By: #### C MP #### [address] [place] [address] Creatinine [Mass/Vol] 0.93 mg/dL Normal 0.50 - 1.30 [facility] Comment on above: Performed By: #### C MP #### [address] [address] eGFR MALE >90 Normal >90 [facility] Comment on above: Result Comment: CALC ULATIONS OF ESTIMATED GFR ARE PERFORMED USING THE 2020 CKD-EPI STUDY REFIT EQUATION WITHOUT THE RACE VARIABLE FOR THE IDMS-TRACEABLE CREATININE METHODS. https://jasn.asnjournals.org/content/early//ASN.006364 1060 Performed By: #### C MP #### [address] [address] Glucose [Mass/Vol] 89 mg/dL Normal 74 - 99 [facility] Comment on above: Performed By: #### C MP #### [address] [address] HCO3 (Bld) [Moles/Vol] 28 mmol/L Normal 21 - 32 [facility] Comment on above: Performed By: #### C MP #### [address] [address] Potassium [Moles/Vol] 4.0 mmol/L Normal 3.5 - 5.3 [facility] Comment on above: Performed By: #### C MP #### [address] [address] Protein [Mass/Vol] 7.5 g/dL Normal 6.4 - 8.2 [facility] Comment on above: Performed By: #### C MP #### [address] [address] Sodium [Moles/Vol] 138 mmol/L Normal 136 - 145 [facility] Comment on above: Performed By: #### C MP #### [address] [address] Urea nitrogen [Mass/Vol] 11 mg/dL Normal 6 - 23 [facility] Comment on above: Performed By: #### C MP #### [facility] [address] [place] [address] Provider Note - ED v3on Provider Note - ED v3 Provider Note: Results/Vital Signs: Pediatric Clinical Scoring (AJAY) is no recent AJAY charted on this account Chart Review: ED NOTES ED NOTES: HPI: 32-year-old male with no medical history comes to the emergency room with dental pain. Left-sided lower dental pain. He was seen here a few days ago for this, discharged with pain medication and antibiotics but he claims to have finished the course of the antibiotics but said last night he broke out in a fever, chills and started having worsening pain on the lower left side. No drooling, trismus. No chest pain, shortness breath, abdominal pain, nausea, vomiting, black stools, red stools or any other symptoms but he scheduled to see a dentist on Thursday. He does not smoke. No regular drug or alcohol use. No surgical history. Past Medical History: as above Past Surgical History: as above Allergies: Reviewed. Family Medical History: Reviewed Review of Systems: Pertinent positive and negative ROS as per HPI Physical Exam: VITALS: I have reviewed the triage vital signs. GENERAL: Well developed, well appearing adult in no acute distress. NEURO: Alert and oriented. Moves all extremities. Face is symmetric and expressive. EYES: No scleral icterus or conjunctival injection. No discharge. HENT: Mouth has evidence of multiple dental caries. There is severe tenderness on the left back 3 lower molars. No obvious asymmetry noted. He did have tenderness under the tongue along with submental tenderness. He had full neck range of motion. No drooling or trismus. NECK: No JVD. Patient moves neck without restriction. CARDIO: Rhythm regular. Normal rate. No murmur, rub, or gallop. Pulses equal bilaterally in the upper and lower extremity. No lower extremity edema PULM: Lungs clear to auscultation in all brar. No wheezes, rales, or rhonchi. No conversational dyspnea. No splinting, stridor, or accessory muscle use. GI/: Abdomen is soft and non-tender. No palpable masses. EXTREMITIES: Symmetric muscle bulk. No clubbing, cyanosis, or deformity. No calf tenderness SKIN: Warm and dry. PSYCH: Mood, affect, and interaction is appropriate to the setting. Medical Decision Makin-year-old patient comes to the emergency room with left-sided dental pain and swelling progressively getting worse since last night along with fevers symptomatology, clinical scenario, CBC, CMP was ordered. CT neck with contrast was ordered however he informed us that he is allergic to contrast so I ordered it without. He did have some tenderness under his tongue and left-sided and submental tenderness. CT of the neck showed no signs of abscess, no signs of Crispin angina. Patient was given a renewal of his prescription for Augmentin, and oxycodone. He is set to see his dentist on Thursday. He will return for any drooling, trismus, difficulty opening his mouth, trouble with neck range of motion, or any other new or concerning symptoms. External records review: inpatient notes, outpatient records History obtained from: patient/chart review Management discussed with: patient, family Patient in agreement and understanding of treatment plan. All questions answered. I reviewed the case with the attending ED physician. The attending ED physician agrees with the plan. Patient and/or patients pharmacy sales representative was counseled regarding labs, imaging, likely diagnosis, and plan. All questions were answered. Brad Granados, DO PGY-3 Emergency Medicine Please excuse any misspellings or unintended errors related to the [employer] speech recognition software used to dictate this note. HISTORY OF PRESENTING ILLNESS JUANCHO is a 32 year old Male and was seen by me at 29-Sep-2022 12:39 for a chief complaint of toothache (filling from cavity fell out--patient has an apt. with a dentist Thursday when his insurance kicks in. left cheek/jaw swelling. patient reports nausea)(1). Triage Information: Most recent Vital Sign Value Date Temp (F): 97.8 09-29-2022 12:41 Temp (C): 36.6 09-29-2022 12:41 Heart Rate (beats/min): 69 09-29-2022 12:41 Respirations (breaths/min): 15 09-29-2022 12:41 SpO2 (%): 100 09-29-2022 12:41 BP Systolic (mm Hg): 141 09-29-2022 12:41 BP Diastolic (mm Hg): 78 09-29-2022 12:41 PAST MEDICAL HISTORY ALLERGIES/INTOLERANCES : Allergy Allergen: contrast (specific type unknown) Type: Contrast Reaction: Throat Swelling Hives/Urticaria Allergen: Phenergan Type: Drug Reaction: Itching Hives/Urticaria HEALTH HISTORY: No documented data. OUTPATIENT MEDICATIONS: Home Medications Review Status for Reconciliation: Not Done Med Status: Patient Currently Takes Medications Drug Name: amoxicillin-clavulanat e 875 mg-125 mg oral tablet Instructions: 1 tab(s) orally 2 times a day Drug Name: oxycodone-acetaminophe n 5 mg-325 mg oral tablet Instructions: 1 tab(s) orally every 6 hours, As Needed for (more content not included)... [place] [facility] [place] Screen - Adult Emergenc yon 09-29-2022 Risk Screen - Adult Emergency Preferred Language: Preferred Language: Preferred Language for Discussing Health Care (patient/designee)Engl farhana Patient Preferred Pharmacy: Patient Preferred Pharmacy Statement: I have reviewed and updated the patient's preferred pharmacy selection for today's visit. Advanced Directives: Advance Directive/DNRno Family Violence Adult: Abuse Screen: Are you or have you been threatened or abused physically, emotionally, or sexually by anyoneno Learning Assessment (Patient): Learning Assessment (Patient): Patient is Able to be Assessed for Learningyes Factors Influencing Readiness to Learnpain Factors that Impact Ability to Learnnone Devices/Methods Used to Communicatenone Learning Preferenceswritten material; verbal instruction Cultural Considerationsnone Developmental Considerationsnone Lutheran Considerationsnone Learning Assessment (Other Learner): Learning Assessment (Other Learner): Other learner availableno Pressure Injury/TB/Substance: Pressure Injury: Do you have a coughno Smoking Statusnever smoker Alcohol Usedenies Drug Usedenies Drug 2 Usedenies Admission Risk Screen: Significant IndicatorsComplete CAGE: CAGE: Is this an injured [place] a [place] [place]): no Electronic Signatures: Sabrina Nielson) (Signed 29-Sep-2022 12:44) Authored: Preferred Language, Patient Preferred Pharmacy, Advanced Directives, Family Violence Adult, Learning Assessment (Patient), Learning Assessment (Other Learner), Pressure Injury/TB/Substance, Pressure Injury, CAGE Last Updated: 29-Sep-2022 12:44 by Sabrina NielsonJUSTINA) Normal [facility] [place] Triage - EDon 09-29-2022 Triage - ED Chart Review: ARRIVAL INFORMATION Means of Arrival: Ambulatory Mode of Arrival: private vehicle Arrival From: home Accompanied By: self Language: Spoken Language Preferred: Citizen [place] Reading Language Preferred: Citizen [place] CHIEF COMPLAINT JUANCHO TSANG is a Male patient with a chief complaint of toothache (filling from cavity fell out--patient has an apt. with a dentist Thursday when his insurance kicks in. left cheek/jaw swelling. patient reports nausea). Triage Date/Time: 29-Sep-2022 12:41 RAHEEL: 4 Pain Rating (0-10): 6 = Moderate Vital Signs: Temperature: 97.8F ( 36.6C) taken forehead Blood Pressure: 141/78 Mean: Heart Rate: 69 Respiratory Rate: 15 Pulse Oximetry: 100% on room air, no respiratory support. Height: 5 feet 9.00 inches. 175.2 CM Weight: 200.4 pounds. Calculated 90.9 kg. (stated) Calculated BMI (kg/m2): 29.613 Calculated BSA (m2) 2.10 Kiley Coma Scale: Best Eye Response: (E4) spontaneous Best Motor Response: (M6) obeys commands Best Verbal Response: (V5) oriented Kiley Score: 15 Allergies: yes Patient has homicidal thoughts: no Symptoms Are POSITIVE For: facial pain and toothache. Symptoms Are Negative For: bleeding, earache, fever, headache, jaw pain, mouth sores, pain (describe) and tooth loss. Risk Screens Suicide Risk Screen In the Past Month: Have you wished you were or wished you could go to sleep and not wake up no In the Past Month: Have you had any actual thoughts of killing yourself no In Your Lifetime: Have you ever done anything, started to do anything, or prepared to do anything to end your life no Waters Fall Scale Screening Has the patient fallen before (or is the patient in the ED as a result of a fall) has not had a fall Does the patient have an impaired gait does not have impaired gait Is the patient cognitively impaired not cognitively impaired Interventions: Waters Fall Interventions: LOW INTERVENTIONS: *patient oriented to surroundings and call system, * patient/family falls education completed and documented, *patients fall status communicated during bedside handoff, *whiteboard updated, *mode of toileting discussed with patient, *bed in low position with brakes locked, *call light in reach, * non-skid footwear PAST MEDICAL HISTORY Immunization History: Last Known Tetanus Immunization: Unknown TRAVEL HISTORY Travel History Coronavirus Screening: no exposure or symptoms Travel Exposure History: NO travel to International locations in the past 30 days PAIN Pain Scale Used: JAQUELINE Pain Rating (0-10): 6 = Moderate Past Medical History: Past Medical History Reviewedno Electronic Signatures: Sabrina Nielson (JUSTINA) (Signed 29-Sep-2022 12:43) Authored: Quick Triage, Risk Screens, Pain, Arrival, Immunizations, Travel History, Chart Review, Scores, Past Medical History Last Updated: 29-Sep-2022 12:43 by Sabrina Nielson (JUSTINA) [facility] Provider Note - ED v3on 080 Provider Note - ED v3 Provider Note: Results/Vital Signs: Pediatric Clinical Scoring (AJAY) is no recent AJAY charted on this account Chart Review: ED NOTES ED NOTES: Patient is a 32-year-old male presents the emergency department via private vehicle with chief complaint of dental pain. Patient states that pain started chronically, however has gotten worse in the past 2 to 3 days. Patient does endorse chills. States pain is constant. He has been taking Excedrin and ibuprofen with minimal relief of his pain. Patient does admit to some nausea. Denies any vomiting. Denies any difficulty breathing, difficulty swallowing, chest pain, shortness of breath, abdominal pain, numbness, tingling or weakness. Past medical history: Hypertension Surgical history: Tonsillectomy Social history: Denies alcohol, tobacco or drug use ROS: All systems reviewed and are negative except as noted or marked PE: Nurses notes reviewed and patient is noted to be non-hypoxic. General: The patient is comfortable, alert and oriented x3, well appearing, non toxic in no apparent distress. Head: Atraumatic and normocephalic. Eyes: Normal conjunctiva ENT: The oropharynx is normal. No pharyngeal erythema, uvular edema, tonsillar exudates, asymmetry or trismus. Uvula is midline. Mouth is normal to inspection With the exception of a pain on percussion of the tooth #19 and 20 and evidence of dental caries. There is no evidence of facial asymmetry or abscess formation. Floor of the mouth is soft. No tenderness in the submental or submandibular space. No tongue elevation or deviation. The patient has no evidence of periapical abscess, gingivitis, ANUG or other acute pathology. Airway is patent. Neck: The neck demonstrates normal range of motion. No meningeals signs are present. No stridor. No masses or lymphandenopathy noted. Respiratory: No acute distress. No stridor or retractions are noted. Cardiovascular: Normal perfusion peripherally. Skin: The skin exam shows no evidence of rashes Neuro: Alert and oriented, normal speech MDM: Patient is seen and examined. Patient does have extensive dental caries. No definitive abscess is identified. No facial swelling. Due to patient's worsening pain, will start antibiotics. Patient is given pain medications. Advised to follow-up with oral surgery and his primary care physician. Patient understands and agrees with this plan. HISTORY OF PRESENTING ILLNESS JUANCHO is a 32 year old Male and was seen by me at 26-Sep-2022 09:36 for a chief complaint of dental pain/injury . Triage Information: Most recent Vital Sign Value Date Temp (F): 97.8 09-26-2022 09:21 Temp (C): 36.6 09-26-2022 09:21 Heart Rate (beats/min): 70 09-26-2022 09:21 Respirations (breaths/min): 16 09-26-2022 09:21 SpO2 (%): 99 09-26-2022 09:21 BP Systolic (mm Hg): 136 09-26-2022 09:21 BP Diastolic (mm Hg): 82 09-26-2022 09:21 PAST MEDICAL HISTORY ALLERGIES/INTOLERANCES : Allergy Allergen: Phenergan Type: Drug Reaction: Itching Hives/Urticaria HEALTH HISTORY: No documented data. OUTPATIENT MEDICATIONS: Home Medications Review Status for Reconciliation: Not Done Med Status: Patient Currently Takes Medications Drug Name: oxycodone-acetaminophe n 5 mg-325 mg oral tablet Instructions: 1 tab(s) orally every 6 hours, As Needed for pain Drug Name: amoxicillin-clavulanat e 875 mg-125 mg oral tablet Instructions: 1 tab(s) orally 2 times a day SIGNIFICANT EVENTS: No documented data. DISPOSITION Diagnosis/Annotation: ED Dx Name:Pain, dental Code:K08.89 Disposition: discharged CONSULT Did you see this patient with a resident ( x ) No ( ) Yes. I personally saw and examined the patient. I have reviewed and agree with the residents findings, including all diagnostic interpretations and treatment plans as written unless documented otherwise in my personal note. I was present for the chase portions of any procedures performed and the inclusive time noted for any critical care statement. CRITICAL CARE TIME Is this a critically ill patient: no Electronic Signatures: Allen Billy () (Signed 26-Sep-2022 15:25) Authored: ED Notes, HPI, PMH, Results/Vital Signs, Clinical Impression, Attestation, Chart Review, Scores Last Updated: 26-Sep-2022 15:25 by Allen Billy () References: 1. Data Referenced From Triage - ED 26-Sep-2022 09:21 Normal [facility] [place] Risk Screen - Adult Emergenc yon 09-26-2022 Risk Screen - Adult Emergency Preferred Language: Preferred Language: Preferred Language for Discussing Health Care (patient/designee)Engl farhana Patient Preferred Pharmacy: Patient Preferred Pharmacy Statement: I have reviewed and updated the patient's preferred pharmacy selection for today's visit. Advanced Directives: Advance Directive/DNRno Family Violence Adult: Abuse Screen: Are you or have you been threatened or abused physically, emotionally, or sexually by anyoneno Learning Assessment (Patient): Learning Assessment (Patient): Patient is Able to be Assessed for Learningyes Factors Influencing Readiness to Learnacuteness of illness Factors that Impact Ability to Learnnone Devices/Methods Used to Communicatenone Learning Preferencesverbal instruction Cultural Considerationsnone Developmental Considerationsnone Lutheran Considerationsnone Learning Assessment (Other Learner): Learning Assessment (Other Learner): Other learner availableno Pressure Injury/TB/Substance: Pressure Injury: Pressure Injury Present on Admissionno Do you have a coughno Smoking Statusnever smoker Alcohol Usedenies Drug Usedenies Resources Offerednot appropriate Admission Risk Screen: Significant IndicatorsComplete CAGE: CAGE: Is this an injured [place] a [place]/[place]): no Electronic Signatures: Jose Maya) (Signed 26-Sep-2022 09:24) Authored: Preferred Language, Patient Preferred Pharmacy, Advanced Directives, Family Violence Adult, Learning Assessment (Patient), Learning Assessment (Other Learner), Pressure Injury/TB/Substance, Pressure Injury, CAGE Last Updated: 26-Sep-2022 09:24 by Jose Maya (JUSTINA) Normal [facility] [place] Triage - EDon 09-26-2022 Triage - ED Quick Triage: The patient and/or guardian verbally acknowledges placement for services into the following (when Urgent Care Service hours are operating):emergency department Chart Review: PRIMARY ASSESSMENT JUANCHO TSANG's primary assessment is Within Defined Limits. The airway is open and patent. Breathing spontaneous and unlabored with clear breath sounds bilaterally. Circulation is normal with good peripheral pulses. Skin is warm and dry and color is normal for race. 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 Onset of the Complaint: 12-Sep-2022 Triage Date/Time: 26-Sep-2022 09:20 RAHEEL: 4 Pain Rating (0-10): 10 = Severe Vital Signs: Temperature: 97.8F ( 36.6C) taken temporal Blood Pressure: 136/82 Mean: Heart Rate: 70 Respiratory Rate: 16 Pulse Oximetry: 99% on room air, no respiratory support. Height: 5 feet 9.00 inches. 175.2 CM Weight: 220.4 pounds. Calculated 100.0 kg. (stated) Calculated BMI (kg/m2): 32.578 Calculated BSA (m2) 2.21 Kiley Coma Scale: Best Eye Response: (E4) spontaneous Best Motor Response: (M6) obeys commands Best Verbal Response: (V5) oriented [place] Score: 15 Cough lasting greater than 3 weeks: no Patient immunocompromised related to: N/A Allergies: yes Patient has homicidal thoughts: no Symptoms Are POSITIVE For: jaw pain, pain (describe) and toothache. Risk Screens Suicide Risk Screen In the Past Month: Have you wished you were or wished you could go to sleep and not wake up no In the Past Month: Have you had any actual thoughts of killing yourself no In Your Lifetime: Have you ever done anything, started to do anything, or prepared to do anything to end your life no Waters Fall Scale Screening Has the patient fallen before (or is the patient in the ED as a result of a fall) has not had a fall Does the patient have an impaired gait does not have impaired gait Is the patient cognitively impaired not cognitively impaired Interventions: Waters Fall Interventions: LOW INTERVENTIONS: *patient oriented to surroundings and call system, * patient/family falls education completed and documented, *patients fall status communicated during bedside handoff, *whiteboard updated, *mode of toileting discussed with patient, *bed in low position with brakes locked, *call light in reach, * non-skid footwear TRAVEL HISTORY Travel History Coronavirus Screening: no exposure or symptoms Travel Exposure History: NO travel to International locations in the past 30 days PAIN Pain Scale Used: JAQUELINE Pain Rating (0-10): 10 = Severe Past Medical History: Past Medical History Reviewedyes Electronic Signatures: Jose Maya (JUSTINA) (Signed 26-Sep-2022 09:23) Authored: Quick Triage, Risk Screens, Pain, Arrival, ABCD, Travel History, Chart Review, Scores, Past Medical History Last Updated: 26-Sep-2022 09:23 by Jose Maya (JUSTINA) [facility] ED PROV NOTEon 09-24-2022 ED PROV NOTE HNO ID: [id number] Author: Paula Pollack PA-C Service: ? Author Type: Physician Obstetrics Technician Type: ED Provider Notes Filed: 09/24/2022 3:46 PM Note Text: ED Provider Note Patient Name: Juancho Tsang : 1990 SERVICE DATE: 09/24/22 History Patient presents with: Toothache Patient is a 32-year-old male presenting to the ED for evaluation of a tooth ache. Patient endorses symptoms worsening over the last 2 weeks. He has not followed up with his dentist. He has tried Excedrin and Orajel without improvement in symptoms, last dose this morning. Pain is a constant throbbing sensation that causes an associated headache. 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 No past surgical history on file. No family history on file. Social History Tobacco Use Smoking status: Not on file Smokeless tobacco: Not on file Substance and Sexual Activity Alcohol use: Not on file Drug use: Not on file Sexual activity: Not on file ALLERGIES Allergen Reactions Phenergan [Prometha* Unknown Review of Systems Constitutional: Negative for chills and fever. HENT: Positive for dental problem. Negative for sore throat, trouble swallowing and voice change. Respiratory: Negative for cough and shortness of breath. Cardiovascular: Negative for chest pain and leg swelling. Gastrointestinal: Negative for abdominal pain and vomiting. Musculoskeletal: Negative for arthralgias and myalgias. Skin: Negative for color change, pallor, rash and wound. Neurological: Positive for headaches. Negative for weakness. Psychiatric/Behavioral : Negative for agitation, behavioral problems and confusion. Physical Exam Vitals BP Pulse Temp Temp src Resp SpO2 Weight Height 09/24/22 0953 09/24/22 0953 09/24/22 0953 09/24/22 0953 09/24/22 0953 09/24/22 0953 09/24/22 0953 09/24/22 0953 145/88 63 36.6 ?C (97.9 ?F) Oral 16 97 % 90.7 kg (200 lb) 1.753 m (5' 9) Physical Exam Constitutional: General: He is awake. He is not in acute distress. Appearance: Normal appearance. He is normal weight. He is not ill-appearing, toxic-appearing or diaphoretic. HENT: Head: Normocephalic and atraumatic. Jaw: There is normal jaw occlusion. Pain on movement present. No trismus, tenderness or swelling. Mouth/Throat: Mouth: Mucous membranes are moist. Dentition: Abnormal dentition. Dental tenderness and dental caries present. No gingival swelling or dental abscesses. Comments: No trismus, submandibular, submental or sublingual swelling or elevation of the tongue Eyes: General: Lids are normal. Vision grossly intact. Gaze aligned appropriately. No scleral icterus. Right eye: No discharge. Left eye: No discharge. Extraocular Movements: Extraocular movements intact. Conjunctiva/sclera: Conjunctivae normal. Neck: Trachea: Trachea and phonation normal. Cardiovascular: Rate and Rhythm: Normal rate and regular rhythm. Heart sounds: No murmur heard. No friction rub. No gallop. Pulmonary: Effort: Pulmonary effort is normal. No respiratory distress. Breath sounds: Normal breath sounds and air entry. No stridor. No decreased breath sounds, wheezing, rhonchi or rales. Musculoskeletal: General: Normal range of motion. Cervical back: Normal range of motion. Skin: General: Skin is warm and dry. Coloration: Skin is not jaundiced or pale. Findings: No erythema or rash. Neurological: General: No focal deficit present. Mental Status: He is alert and oriented to person, place, and time. Sensory: Sensation is intact. Motor: Motor function is intact. No weakness. Psychiatric: Attention and Perception: Attention and perception normal. Mood and Affect: Mood and affect normal. Speech: Speech normal. Behavior: Behavior normal. Behavior is cooperative. Thought Content: Thought content normal. Diagnostic Testing ED Labs Ordered and Reviewed - No data to display Procedures ED Course / Clinical Impression Clinical Impressions as of 09/24/22 1542 Dental infection Dental caries MDM / Disposition / Plan Patient is a 32-year-old male presenting to the ED for evaluation of a tooth ache. Patient is afebrile, hemodynamically stable, well-appearing, non-toxic. Initial VS: BP 145/88 Pulse 63 Temp (Src) 97.9 (Oral) Resp 16 Ht 5' 9 (1.75m) Wt 200 lb (90.7kg) SpO2 97% BMI 29.52 kg/(m2). Vital signs were reviewed. Triage records were reviewed. Medical records were reviewed. Nursing notes were reviewed and incorporated. ED Course: Patient is a 32-year-old male presenting to the ED for evaluation of a tooth ache x2 weeks. On arrival to the ED vitals are stable. On exam patient is holding an ice pack to his jaw. He is able to open and close without difficulty. No trismus, submandibular, submental or sublingual swelling or elevation of the tongue. The lower last 3 molars are decaying with caries. There is (more content not included)... Normal [facility] Vital Signs Date Time Vital Sign Value Performing Clinician Margy tripp 11-24-2024 22:46-0400 Body temperature 98.2 [degF] Carlos Avalos MD Work Phone: [employer] 11-24-2024 22:46-0400 Diastolic blood pressure 88 mm[Hg] Carlos Avalos MD Work Phone: [employer] 11-24-2024 22:46-0400 Heart rate 97 /min Carlos Avalos MD Work Phone: [employer] 11-24-2024 22:46-0400 Respiratory rate 18 /min Carlos Avalos MD Work Phone: [employer] 11-24-2024 22:46-0400 SaO2% (BldA) [Mass fraction] 98 % Carlos Avalos MD Work Phone: [employer] 11-24-2024 22:46-0400 Systolic blood pressure 143 mm[Hg] Carlos Avalos MD Work Phone: [employer] 11-24-2024 20:29-0400 Body height 175.3 cm Carlos Avalos MD Work Phone: [employer] 11-24-2024 20:29-0400 Body mass index (BMI) [Ratio] 28.06 kg/m2 Carlos Avalos MD Work Phone: [employer] 11-24-2024 20:29-0400 Body weight 86.18 kg Carlos Avalos MD Work Phone: [employer] 11-24-2024 06:53-0400 Diastolic blood pressure 82 mm[Hg] Randall Zangmeister DO Work Phone: [employer] 11-24-2024 06:53-0400 Heart rate 80 /min Randall Zangmeister DO Work Phone: [employer] 11-24-2024 06:53-0400 Respiratory rate 16 /min Randall Zangmeister DO Work Phone: [employer] 11-24-2024 06:53-0400 SaO2% (BldA) [Mass fraction] 98 % Randall Zangmeister DO Work Phone: [employer] 11-24-2024 06:53-0400 Systolic blood pressure 136 mm[Hg] Randall Zangmeister DO Work Phone: [employer] 11-24-2024 04:38-0400 Body height 175.3 cm Randall Miles DO Work Phone: [employer] 11-24-2024 04:38-0400 Body mass index (BMI) [Ratio] 28.06 kg/m2 Randall Miles DO Work Phone: [employer] 11-24-2024 04:38-0400 Body temperature 97.59 [degF] Randall Miles DO Work Phone: [employer] 11-24-2024 04:38-0400 Body weight 86.18 kg Randall Miles DO Work Phone: [employer] 08-20-2024 11:19-0400 Diastolic blood pressure 77 mm[Hg] Ricardo Stoyak DO Work Phone: [employer] 08-20-2024 11:19-0400 Heart rate 72 /min Ricardo Stoyak DO Work Phone: [employer] 08-20-2024 11:19-0400 Respiratory rate 17 /min Ricardo Stoyak DO Work Phone: [employer] 08-20-2024 11:19-0400 SaO2% (BldA) [Mass fraction] 98 % Ricardo Stoyak DO Work Phone: [employer] 08-20-2024 11:19-0400 Systolic blood pressure 122 mm[Hg] Ricardo Stoyak DO Work Phone: [employer] 08-20-2024 08:54-0400 Body height 175.3 cm Ricardo Stoyak DO Work Phone: [employer] 08-20-2024 08:54-0400 Body mass index (BMI) [Ratio] 33.23 kg/m2 Ricardo Stoyak DO Work Phone: [employer] 08-20-2024 08:54-0400 Body temperature 98.71 [degF] Ricardo Stoyak DO Work Phone: [facility] 08-20-2024 08:54-0400 Body weight 102.06 kg Ricardo Mai DO Work Phone: [facility] 09-29-2022 14:41-0400 Body height 175.2 cm Pcp Unknown [facility] 09-29-2022 14:41-0400 Body temperature 97.88 [degF] Pcp Unknown [facility] 09-29-2022 14:41-0400 Body weight 90.9 kg Pcp Unknown [facility] 09-29-2022 14:41-0400 Diastolic blood pressure 78 mm[Hg] Pcp Unknown [facility] 09-29-2022 14:41-0400 Heart rate 69 /min Pcp Unknown [facility] 09-29-2022 14:41-0400 Respiratory rate 15 /min Pcp Unknown [facility] 09-29-2022 14:41-0400 SaO2% (BldA) [Mass fraction] 100 % Pcp Unknown [facility] 09-29-2022 14:41-0400 Systolic blood pressure 141 mm[Hg] Pcp Unknown [facility] 09-26-2022 11:21-0400 Body height 175.2 cm Pcp Unknown [facility] 09-26-2022 11:21-0400 Body temperature 97.88 [degF] Pcp Unknown [facility] 09-26-2022 11:21-0400 Body weight 100 kg Pcp Unknown [facility] 09-26-2022 11:21-0400 Diastolic blood pressure 82 mm[Hg] Pcp Unknown [facility] 09-26-2022 11:21-0400 Heart rate 70 /min Pcp Unknown [facility] 09-26-2022 11:21-0400 Respiratory rate 16 /min Pcp Unknown [facility] 09-26-2022 11:21-0400 SaO2% (BldA) [Mass fraction] 99 % Pcp Unknown [facility] 09-26-2022 11:21-0400 Systolic blood pressure 136 mm[Hg] Pcp Unknown [facility] Encounters Encounter Date Encounter Type Care Provider Facility Start: 11-24-2024 End: 11-24-2024 Emergency department patient visit Carlos Avalos MD Work Phone: [facility] Comment on above: Generalized abdomina l pain (Primary Dx); Nausea and vomiting, unspecified vomiting type Start: 11-24-2024 End: 11-24-2024 Evaluation and management of inpatient Carlos Avalos MD Work Phone: [facility] Start: 11-24-2024 End: 11-24-2024 Emergency department patient visit aRndall Miles DO Work Phone: [facility] Comment on above: Nausea and vomiting, unspecified vomiting type (Primary Dx); Hepatic steatosis; Abdominal pain, unspecified abdominal location Start: 11-24-2024 End: 11-24-2024 Evaluation and management of inpatient Randall Miles DO Work Phone: [facility] Start: 08-20-2024 End: 08-20-2024 Emergency department patient visit Ricardo Mai DO Work Phone: [facility] Comment on above: Muscular chest pain (Primary Dx) Start: 08-20-2024 End: 08-20-2024 Evaluation and management of inpatient Ricardo Mai DO Work Phone: [facility] Start: 09-29-2022 End: 09-29-2022 Emergency department patient visit Nidia Montero Alex ED Result Start: 09-26-2022 ambulatory Bonnie Connelly RN NURSE [employer]CH[employer] SALES REPRESENTATIVE Comment on above: Toothache Start: 09-26-2022 End: 09-26-2022 Emergency department patient visit Allen Billy Alex Emergency B Procedures Date Procedure Procedure Detail Performing Clinician Start: 11-24-2024 CBC W Auto Different ial panel - Blood Carlos Avalos MD Work Phone: Start: 11-24-2024 Creatinine [Mass/vol ume] in Serum or Plasma Carlos Avalos MD Work Phone: Start: 11-24-2024 Creatinine blood Carlos Avalos MD Work Phone: Start: 11-24-2024 ELECTROLYTES, BLOOD GAS Carlos Avalos MD Work Phone: Start: 11-24-2024 Ecg routine ecg w/le ast 12 lds trcg only w/o i&r Carlos Avalos MD Work Phone: Start: 11-24-2024 Infectious agent dna /rna influenza 1st 2 types Carlos Avalos MD Work Phone: Start: 11-24-2024 Sars-cov-2 detection by dna/rna Carlos Avalos MD Work Phone: Start: 11-24-2024 Ct abdomen & pelvis w/o contrast material Randall Miles DO Work Phone: Start: 11-24-2024 CBC W Auto Different ial panel - Blood Randall Miles DO Work Phone: Start: 11-24-2024 Comprehensive metabo lic panel Randall Miles DO Work Phone: Start: 11-24-2024 Radiologic exam ches t single view Randall Miles DO Work Phone: Start: 11-24-2024 Ecg routine ecg w/le ast 12 lds trcg only w/o i&r Randall Miles DO Work Phone: Start: 08-20-2024 Ct abdomen & pelvis w/contrast material Ricardo Mai DO Work Phone: Start: 08-20-2024 Radiologic exam ches t single view Ricardo Mai DO Work Phone: Start: 08-20-2024 Basic metabolic pane l calcium total Ricardo Mai DO Work Phone: Start: 08-20-2024 CBC W Auto Different ial panel - Blood Ricardo Mai DO Work Phone: Start: 08-20-2024 Ecg routine ecg w/le ast 12 lds trcg only w/o i&r Ricardo Mai DO Work Phone: Plan of Treatment Date Care Activity Detail Author Start: 05-15-2066 RSV Immunization Adult Patients (1 - 1-dose 75+ series) RSV Immunization Adult Patients (1 - 1-dose 75+ series) [facility] Start: 11-24-2025 Social Influencers of Health Screening Social Influencers of Health Screening [facility] Start: 08-20-2025 Social Influencers of Health Screening Social Influencers of Health Screening [facility] Start: 12-02-2024 End: 12-02-2024 Patient encounter procedure 12/02/2024 11:20 AM EDT Office Visit [facility] [address] [place] [address] Lamine Henry DO [address] [place] [address] [facility] Start: 10-24-2024 COVID-19 Vaccine () COVID-19 Vaccine () [facility] Start: 10-24-2024 Influenza vaccination [facility] Start: 08-20-2024 Adolescent depression screening assessment Depression Screening [facility] Start: 08-20-2024 Hepatitis C screening Hepatitis C Screening [facility] Start: 08-20-2024 HIV screening HIV Screening [facility] Start: 02-24-2024 Depression Screening Depression Screening [facility] Start: 10-25-2023 COVID-19 Vaccine ( season) COVID-19 Vaccine () [facility] Start: 10-24-2022 Influenza vaccination INFLUENZA (#1) [facility] Start: 02-23-2022 DEPRESSION ASSESSMENT DEPRESSION ASSESSMENT [facility] Start: 05-15-2018 HPV Vaccines (1 - 3-dose SCDM series) HPV Vaccines (1 - 3-dose SCDM series) [facility] Start: 05-15-2010 DTaP,Tdap,and Td Vaccines (1 - Tdap) DTaP,Tdap,and Td Vaccines (1 - Tdap) [facility] Start: 05-15-2010 Hepatitis B Vaccines (1 of 3 - 19+ 3-dose series) Hepatitis B Vaccines (1 of 3 - 19+ 3-dose series) [facility] Start: 05-15-2010 Urine microalbumin profile DTAP,TDAP,TD (1 - Tdap) [facility] Start: 05-15-2009 HEPATITIS C SCREENING HEPATITIS C SCREENING [facility] Start: 05-15-2009 HIV SCREENING HIV SCREENING [facility] Start: 1990 COVID-19 VACCINE (#1) COVID-19 VACCINE (#1) [facility] Start: 1990 HEPATITIS B (1 of 3 - 3-dose series) HEPATITIS B (1 of 3 - 3-dose series) [facility] Payers Date Payer Category Payer Medicaid (Managed Care) [employer]NA[employer]ED [employer] SERVICES [facility] [id number] 2023 Unknown [id number] 1990 Unknown [id number] 1991 Unknown [id number] 1991 Unknown [id number] Self-pay [id number] Unknown See Registration System\SELF PAY Social History Date Type Detail Facility [facility] Tobacco smoking consumption unknown [facility] Start: 1990 Sex Assigned At Not on file [facility] Start: 08-20-2024 End: 11-24-2024 Gender identity Not on file [facility] Start: 08-20-2024 Tobacco smoking status NHIS Never smoked tobacco [facility] Start: 08-20-2024 Tobacco use and exposure Smokeless tobacco non-user [facility] Start: 08-20-2024 End: 11-24-2024 History of Social function [facility] Has the lack of transportation kept you from meetings, work, or from getting things needed for daily living? No [facility] 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 States he was seen last night and not feeling better History of Present Illness: Juancho Tsang is a 34 y.o. male presenting to the emergency department with nausea and vomiting. Patient recently was seen here in the emergency department earlier this morning for evaluation due to persistent nausea and vomiting. Patient does state that he does use marijuana however not frequently. The patient states that he has not noted any blood in his sputum or in his vomit. The patient denies any bloody stools. PAST MEDICAL HISTORY: Problem List[1] Medical History[2] Surgical History[3] Allergies[4] Family History[5] SOCIAL HISTORY: Social History Tobacco Use Smoking status: Never Smokeless tobacco: Never Substance Use Topics Alcohol use: Not on file Social History Social History Narrative Not on file REVIEW OF SYSTEMS: As per HPI PHYSICAL EXAM: ED Triage Vitals Temp Heart Rate Resp BP 11/24/24202811/24/24202811/24/24202811/24/242028 36.3 C (97.4 F) 97 18 123/88 SpO2 Temp Source Heart Rate Source Patient Position 11/24/24202811/24/24224511/24/24224511/24/242245 98 % Oral Monitor Sitting BP Location FiO2 (%) 11/24/242245 -- Right arm;Upper CONSTITUTIONAL: Appears uncomfortable, actively retching and vomiting EYES: Pupils are equal, round and reactive to light. Extraocular muscles are intact. No icterus. ENT:: External ears appear normal. The nose is normal in appearance. There is no rhinorrhea. MOUTH: Mucous membranes are moist. NECK/LYMPH: The trachea is mid-line. The neck is supple. No lymphadenopathy. CARDIOVASCULAR: The heart has a regular rate and rhythm without murmur. Pulses are equal bilaterally and there is brisk capillary refill. No peripheral edema. RESPIRATORY: There is normal chest excursion with respiration. The lungs are clear and equal to auscultation bilaterally. There are no rales, rhonchi, or wheezes. GASTROINTESTINAL: Abdomen soft, non-distended, non-tender, without rigidity. MUSCULOSKELETAL: There are no deformities noted in all four extremities. INTEGUMENTARY: The skin appears normal for age and race. It is warm and dry. No petechiae or purpuric lesions are noted. PSYCHOLOGICAL: Constantly shifting in the bed and actively vomiting and appears anxious. Grooming and personal hygiene are appropriate. NEUROLOGICAL: Patient is alert and oriented to person, place, and time. Sensory and motor functions are intact. ED STUDIES: Labs Reviewed CBC WITH AUTO DIFFERENTIAL - Abnormal Result Value WBC 11.2 (*) RBC 6.08 (*) Hemoglobin 15.9 Hematocrit 46.4 MCV 76.3 (*) MCH 26.2 (*) MCHC 34.3 RDW 13.6 Platelets 281 MPV 9.2 Neutrophils Relative 72.7 Lymphocytes Relative 21.7 Monocytes Relative 4.4 Eosinophils Relative 0.4 Basophils Relative 0.4 Immature Granulocytes Relative 0.4 Neutrophils Absolute 8.14 (*) Lymphocytes Absolute 2.43 Monocytes Absolute 0.49 Eosinophils Absolute 0.04 Basophils Absolute 0.04 Immature Granulocytes Absolute 0.04 GLUCOSE, BLOOD GAS - Abnormal Glucose, Bld 112 (*) ELECTROLYTES, BLOOD GAS - Abnormal Sodium, Bld 144 Potassium, Bld 3.5 (*) Chloride Blood Gas 106 INFLUENZA A AND B MOLECULAR STUDY - Normal Influenza A Negative Influenza B Negative Narrative: Molecular testing utilizing isothermal nucleic acid amplification technology. RAPID [id number] SCREENING, MOLECULAR - Normal SARS-COV-2 Screen Not Detected Narrative: Molecular testing utilizing isothermal nucleic acid amplification technology. CREATININE - Normal Creatinine 1.20 CBC AND DIFFERENTIAL Narrative: The following orders were created for panel order CBC and differential. Procedure Abnormality Status --------- ------ CBC auto differential[[id number]] Abnormal Final result Please view results for these tests on the individual orders. BASIC METABOLIC PANEL HEPATIC FUNCTION PANEL LIPASE No orders to display ED COURSE: Vitals: 11/24/24202811/24/242245 BP: 123/88 (!) 143/88 BP Location: Right arm;Upper Patient Position: Sitting Pulse: 97 97 Resp: 18 18 Temp: 36.3 C (97.4 F) 36.8 C (98.2 F) TempSrc: Oral SpO2: 98% 98% Weight: 86.2 kg (190 lb) Height: 1.753 m (69) Medications droPERidol (INAPSINE) injection 1.25 mg (1.25 mg intravenous Given 11/24/242138) diphenhydrAMINE (BENADRYL) injection 25 mg (25 mg intravenous Given 11/24/242138) Clinical Impressions as of 11/25/24 0052 Generalized abdominal pain Nausea and vomiting, unspecified vomiting type In summary, Juancho Tsang is a 34 y.o. male presenting to the emergency department with generalized abdominal pain with persistent nausea and vomiting. On my evaluation, patient does appear to be actively retching and symptoms are consistent with hyperemesis syndrome. Review of patient's most recent ED visit demonstrates that the patient did have a full evaluation including lab results that were concerning for a slight leukocytosis and slight elevation in bilirubin. EKG and chest x-ray were unremarkable and troponin was normal. CT imaging was also performed at that time demonstrating no acute significant abnormality. Given the most recent visit I do have low suspicion for any acute abnormality that would require further evaluation aside from repeat labs. Repeat labs were performed demonstrating resolution of the leukocytosis and slight hypokalemia however not significant. COVID-19 and influenza were not detected. Due to lab malfunction the hepatic function panel and lipase would not be performed at this time. The patient was given a dose of droperidol and Benadryl which did significantly improve the patient's symptoms. The patient did feel comfortable with discharge at this time and I did advise to return to the emergency department if symptoms persist or worsen. Differential Diagnosis Considered - : Yes, the differential associated with the patient's presentation includes hyperemesis syndrome, acute pancreatitis, electrolyte abnormality, influenza, and others Test Considered But Not Performed List - : Repeat CT abdomen and pelvis, recently performed CT imaging demonstrating no acute abnormality performed less than 20 hours prior to this evaluation. DIAGNOSTIC IMPRESSION: 1. Generalized abdominal pain 2. Nausea and vomiting, unspecified vomiting type DISPOSITION: Discharge PDMP Reviewed by: on ED Prescriptions None Procedures [1] There is no problem list on file for this patient. [2] Past Medical History: Diagnosis Date Hypertension [3] Past Surgical History: Procedure Laterality Date APPENDECTOMY [4] Allergies Allergen Reactions Iodinated Contrast Media Hives Phenergan [Promethazine] Nausea And Vomiting [5] No family history on file. Carlos Avalos MD 11/25/24 0058 documented in this encounter [facility] History of Present illness Narrative 11-24-2024 Andre Spangler MD - 11/24/2024 6:25 AM EDTTlissy Miles DO - 11/24/2024 4:34 AM EDT Note Date & Type Note Facility 11-24-2024 History of Presen t illness Narrative I took over this patient in signout to follow-up on CT of the abdomen and pelvis. Patient presented today chiefly for abdominal pain with nausea and vomiting. Patient feels significantly improved. CT showed no acute abnormality. Workup here overall reassuring. Resting comfortably upon my reevaluation. Will have p.o. challenge prior to discharge. Given medications by previous physician for symptomatic relief and medications for ulcer related to H. pylori. Encouraged outpatient follow-up with primary care and gastroenterology. Instructions to return with any further concerns. Specifically, discussed returning for worsening pain, nausea and vomiting, or fever. Images from the original note were not included. Chief Complaint Patient presents with Nausea Vomiting Chest pain 34-year-old male past medical history of hypertension presenting with concerns of epigastric abdominal discomfort, nausea vomiting, decreased p.o. intake, and pleuritic chest pain substernal in nature prior to arrival. Patient states he may have a history of prior stomach ulcers, however has not had this diagnosed recently. Has been taking Motrin daily. Denies any alcohol, drug use, or marijuana use prior to arrival. Denies any bright red dark black bloody stools, dysuria frequency urgency, localizing right lower quadrant pain, recent abdominal injury or other medical complaints. Medical History[1] Surgical History[2] Allergies[3] Social History Socioeconomic History Marital status: Single Spouse name: Not on file Number of children: Not on file Years of education: Not on file Highest education level: Not on file Occupational History Not on file Tobacco Use Smoking status: Never Smokeless tobacco: Never Substance and Sexual Activity Alcohol use: Not on file Drug use: Yes Types: Marijuana/Cannabis Sexual activity: Not on file Other Topics Concern Not on file Social History Narrative Not on file Home Medications None Review of Systems Constitutional: Negative for activity change, diaphoresis, fatigue and fever. HENT: Negative for congestion and nosebleeds. Eyes: Negative for discharge and redness. Respiratory: Negative for cough, shortness of breath, wheezing and stridor. Gastrointestinal: Positive for abdominal pain, nausea and vomiting. Negative for abdominal distention, constipation and diarrhea. Genitourinary: Negative for difficulty urinating, dysuria, flank pain, frequency and testicular pain. Skin: Negative for rash. Neurological: Negative for weakness and headaches. Psychiatric/Behavioral: Negative for agitation, behavioral problems, confusion and decreased concentration. Physical Exam Constitutional: General: He is not in acute distress. Appearance: He is well-developed. He is not ill-appearing, toxic-appearing or diaphoretic. Interventions: He is not intubated. Comments: Resting comfortably in bed no acute distress HENT: Head: Normocephalic and atraumatic. Right Ear: Tympanic membrane, ear canal and external ear normal. There is no impacted cerumen. Left Ear: Tympanic membrane, ear canal and external ear normal. There is no impacted cerumen. Nose: No congestion or rhinorrhea. Mouth/Throat: Pharynx: No oropharyngeal exudate or posterior oropharyngeal erythema. Eyes: Extraocular Movements: Extraocular movements intact. Cardiovascular: Rate and Rhythm: Normal rate and regular rhythm. Pulmonary: Effort: No tachypnea, bradypnea, accessory muscle usage or respiratory distress. He is not intubated. Breath sounds: No stridor. No decreased breath sounds, wheezing, rhonchi or rales. Comments: Patient not visibly tachypneic, no accessory muscle use, no stridor, no new oxygen requirement Abdominal: Tenderness: There is no abdominal tenderness. Comments: Abdomen soft nontender in all quadrants, no pulsatile abdominal mass Musculoskeletal: Right lower leg: No edema. Left lower leg: No edema. Neurological: General: No focal deficit present. Mental Status: He is alert and oriented to person, place, and time. Cranial Nerves: No cranial nerve deficit. Psychiatric: Mood and Affect: Mood normal. Mood is not anxious. Behavior: Behavior normal. Thought Content: Thought content normal. Judgment: Judgment normal. Visit Vitals Smoking Status Never Procedures ED Course & MDM MDM ( MEDICAL DECISION MAKING: Patient was given Toradol, Reglan, Benadryl, normal saline bolus IV emetic complete resolution of abdominal discomfort while in ER. Patient CBC showed signs of leukocytosis likely reactive in nature, no signs of anemia thrombocytopenia. Electrolytes were not clinically significant, no signs of acute kidney injury or liver enzyme elevation. Lipase was negative and troponin negative. Patient's x-ray of the chest did not show any signs of pneumonia or mediastinum, and CT of the abdomen without contrast after patient reported a iodine allergy that caused hives, did not show signs of any perforated ulcer or other intra-abdominal pathology. Patient therefore was deemed appropriate for discharge by team. He was given scripts of Protonix, clarithromycin, and amoxicillin for empiric GI ulcer/H. pylori coverage since patient's had a history of this in the past, and admits to using Motrin daily for his back pain. Pt Was educated to follow-up with primary care provider and GI for further care and given strict return options. Patient is agreeable with plan, all questions were answered, patient was discharged in stable condition. ED Course as of 11/24/24 0659 Mercedes Nov 24, 2024 044 Patient received p.o. Zofran prior to arrival. [TZ] 0451 12-Lead ECG Sinus rhythm, no acute ST segment or T wave versions. [TZ] 0520 XR Chest 1 View No acute findings. [TZ] 0527 Auto WBC(!): 14.9 [TZ] 0527 Hemoglobin: 16.4 [TZ] 0527 Hematocrit: 48.8 [TZ] 0527 Platelets: 306 [TZ] 0555 Lipase: 32 [TZ] 0555 Potassium: 3.8 [TZ] 0555 BUN: 12 [TZ] 0555 Creatinine: 1.22 [TZ] 0555 Calculated GFR: 80 [TZ] 0555 AST (SGOT): 18 [TZ] 0555 ALT (SGPT): 34 [TZ] 0555 Total Bilirubin(!): 1.9 [TZ] 0655 High Sensitivity Troponin I: 3 [TZ] 0658 CT Abdomen Pelvis wo Contrast . No acute abnormality identified to account for the patient's symptoms. 2. Hepatic steatosis. Correlation with liver function tests is recommended. [TZ] ED Course User Index [TZ] Randall Miles DO Clinical Impressions as of 11/24/24 06 Nausea and vomiting, unspecified vomiting type Hepatic steatosis Abdominal pain, unspecified abdominal location Differential Diagnosis Considered GI ulcer versus marijuana hyperemesis versus ACS versus pleurisy versus cholecystitis versus other Escalation of care including admission/observation considered-transfer, specialist consult, reevaluation Independent interpretation of EKG, rhythm strip -sinus rhythm, no acute ST elevations depressions or T wave inversions Independent interpretation of Imaging -no obvious pneumonia or mediastinum, no obvious intra-abdominal infectious process Randall Miles DO 11/24/24 0440 [1] Past Medical History: Diagnosis Date Hypertension [2] Past Surgical History: Procedure Laterality Date APPENDECTOMY [3] Allergies Allergen Reactions Phenergan [Promethazine] Nausea And Vomiting Randall Miles DO 11/24/24658 documented in this encounter [facility] Discharge instructions 11-24-2024 Discharge InstructionsAttachments Note Date & Type Note Facility 11-24-2024 Hospital Discharg e instructions Andre Spangler MD - 11/24/2024 5:31 AM EDT Please follow-up with primary care and one of the gastroenterology options. Please return to the emergency department with any further concerns. The following attachments cannot be sent through Care Everywhere.Infection: H. Pylori Bacterial ([place]izen [place])Abdominal Pain ([place])documented in this encounter [facility] History of Present illness Narrative 08-20-2024 Fracisco Staples RN - 08/20/2024 8:46 AM Kallie Mai DO - 08/20/2024 8:42 AM EDT Note Date & Type Note Facility 08-20-2024 History of Presen t illness Narrative Pt presents to ER w/ CC of Chest pain, says that he noticed it hurting a couple days ago but has not gotten relief. Pt does has a hx of high blood pressure. Rates pain 7/10. Says it hurts to breath w/ inspiration. 141/92 Images from the original note were not included. Patient Name: Juancho Tsang Initial Evaluation: 08/20/2024 : 1990 Patient's PCP: No Pcp Physician Emergency Physician: Ricardo Mai DO History of Present Illness Chief Complaint Patient presents with Chest Pain Juancho Tsang is a 34 y.o. male with no contributing past medical history in our system presenting to [facility] for evaluation of chest pain. Through discussion with the patient and an independent historian, family friend on arrival, I was able to gather that the patient has had 3 days of left-sided chest pain. He said it is reproducible. He rates it as an 8 out of 10. There is no radiation of the pain to the neck, jaw, arms, or shoulder. 1 episode of nausea. No associated shortness of breath. Patient says that the pain got worse today. He has not taken any pain meds to address his symptoms. He does have a history of high blood pressure and high cholesterol, medicated, but patient has run out of his prescriptions. He said he does not typically get chest pain and something this has not happened him in the past. Denies any alcohol use, does smoke marijuana, not cigarettes. Patient has no history of DVT or PE, no recent surgery or treatment for cancer, no hemoptysis, no hormonal use. A complete 11 system ROS was performed (constitutional, eyes, ENMT, CV, respiratory, GI, , MSK, skin, neurological, psychiatric) and was negative aside from the pertinent positive and negatives noted in the HPI. Previous History Past Medical History: Diagnosis Date Hypertension Past Surgical History: Procedure Laterality Date APPENDECTOMY Current Outpatient Medications Medication Instructions cyclobenzaprine (FLEXERIL) 5 mg, oral, 3 times daily ibuprofen (ADVIL,MOTRIN) 800 mg, oral, 3 times daily Allergies Allergen Reactions Phenergan [Promethazine] Nausea And Vomiting No family history on file. Physical Exam Patient Vitals for the past 24 hrs: BP Temp Temp src Pulse Resp SpO2 Height Weight 08/20/24 0854 (!) 141/92 37.1 C (98.7 F) Oral 85 16 97 % 1.753 m (69) 102 kg (225 lb) Physical Exam Vitals and nursing note reviewed. Constitutional: General: He is awake. He is not in acute distress. Appearance: Normal appearance. HENT: Head: Normocephalic and atraumatic. Right Ear: External ear normal. Left Ear: External ear normal. Nose: Nose normal. Eyes: General: Lids are normal. Extraocular Movements: Extraocular movements intact. Neck: Trachea: Trachea normal. Pulmonary: Effort: No accessory muscle usage, respiratory distress or retractions. Comments: Lungs are clear to auscultation bilaterally Chest: Abdominal: General: Abdomen is flat. Palpations: Abdomen is soft. Tenderness: There is no abdominal tenderness. Musculoskeletal: Cervical back: Full passive range of motion without pain. Skin: General: Skin is warm and dry. Neurological: General: No focal deficit present. Mental Status: He is alert. Sensory: Sensation is intact. Motor: Motor function is intact. Psychiatric: Attention and Perception: Attention normal. Speech: Speech normal. ED Course and Medical Decision Making Juancho Tsang was a 34 y.o. male who presented to [facility] with the above described history and physical exam findings. ECG on arrival independently interpreted by me shows a normal sinus rhythm, normal ECG, ventricular rate 87 bpm, QTc 428 MS, no ischemic changes noted. In addition to the patient's acute problem today, the patient's chronic conditions including hypertension, hyperlipidemia had to be considered during their evaluation and certainly added to the complexity of care. Based on all of the information above, the differential diagnoses I considered for my work-up includes pleurisy, costochondritis, rule out ACS. The patient's presentation today is not consistent with PE and patient is PERC negative, so although I did consider D-dimer testing and CT imaging or dissection, I do not believe it is indicated at this time. Please see below for the results of the studies I ordered and reviewed. Pending labs and imaging, patient will be given a dose of morphine and Zofran. Ultimately, lab work here was unremarkable. No repeat troponin indicated. On reevaluation, patient symptoms have improved, but he is he says that his pain is more in the left upper quadrant of the abdomen at this point. We discussed management options and we will send him for CT imaging. Patient lipase is pending. Ultimately, lipase was normal. CT abdomen and pelvis was unremarkable. On reevaluation, patient symptoms had improved somewhat. 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 He has no low heart score. He would not require any further labs or imaging at this time. I did give him strict return precautions in the event that his pain gets worse and he verbalized understanding of plan. In the meantime, we will send him home with ibuprofen and muscle relaxers. All questions were answered to his satisfaction prior to discharge home. Clinical Impressions as of 08/20/24 1115 Muscular chest pain Discharge ED Medications Medications morphine injection 4 mg (4 mg intravenous Given 08/20/24 0921) ondansetron (PF) (ZOFRAN) injection 4 mg (4 mg intravenous Given 08/20/24 0921) sodium chloride 0.9 % flush 10 mL (10 mL intravenous Given 08/20/24 1051) iopamidoL (ISOVUE-300) 300 mg iodine /mL (61 %) solution 100 mL (100 mL intravenous Given 08/20/24 1050) Results Labs Reviewed BASIC METABOLIC PANEL - Abnormal Result Value Sodium 137 Potassium 3.8 Chloride 104 CO2 26 Anion Gap 7 Glucose 114 (*) BUN 9 Creatinine 1.07 eGFR 94 BUN/Creatinine Ratio 8.4 (*) Calcium 9.9 CBC WITH AUTO DIFFERENTIAL - Abnormal WBC 7.6 RBC 6.00 (*) Hemoglobin 15.8 Hematocrit 47.3 MCV 78.8 (*) MCH 26.3 (*) MCHC 33.4 RDW 13.7 Platelets 257 MPV 9.1 Neutrophils Relative 49.9 Lymphocytes Relative 42.8 Monocytes Relative 5.0 Eosinophils Relative 1.2 Basophils Relative 0.4 Immature Granulocytes Relative 0.7 Neutrophils Absolute 3.78 Lymphocytes Absolute 3.24 Monocytes Absolute 0.38 Eosinophils Absolute 0.09 Basophils Absolute 0.03 Immature Granulocytes Absolute 0.05 MAGNESIUM - Normal Magnesium 2.1 TROPONIN I HIGH SENSITIVITY - Normal High Sensitivity Troponin I 3 LIPASE - Normal Lipase 45 CBC AND DIFFERENTIAL Narrative: The following orders were created for panel order CBC and differential. Procedure Abnormality Status --------- ------ CBC auto differential[[id number]] Abnormal Final result Please view results for these tests on the individual orders. CT Abdomen Pelvis w Contrast Final Result No acute intra-abdominal or pelvic findings. Mild bilateral gynecomastia. -------- FINAL REPORT -------- Dictated By: Ricci Hartman Dictated Date: 08/20/2024 11:03 Assigned Physician: Ricci Hartman Reviewed and Electronically Signed By: Ricci Hartman Signed Date: 08/20/2024 11:06 Workstation ID: [id number] Transcribed By: Self Edit Transcribed Date: 08/20/2024 11:03 XR Chest 1 View Final Result No focal airspace opacity or consolidation. -------- FINAL REPORT -------- Dictated By: Bhanu العلي Dictated Date: 08/20/2024 09:44 Assigned Physician: Bhanu العلي Reviewed and Electronically Signed By: Bhanu العلي Signed Date: 08/20/2024 09:45 Workstation ID: [id number] Transcribed By: Self Edit Transcribed Date: 08/20/2024 09:44 Procedures Procedures Ricardo Mai, 08/20/24 0910 Ricardo Mai DO 08/20/24 1008 Ricardo Mai, 08/20/24 1115 documented in this encounter [facility] Note 09-26-2022 Telephone Encounter - Bonnie Connelly RN - 09/26/2022 2:52 PM EDT Note Date & Type Note Facility 09-26-2022 Miscellaneous Notes Formattin g of this note might be different from the original. Reason for Call: Dental pain, facial swelling, and headache. Patient rates pain as severe. Seen at [place] [facility] 2 days ago. Started on antibiotic. Symptoms are worsening. Outcome: See PCP within the next 4 hours. Patient declines recommendation. Patient states he is on his way to work, and may go to [facility] ER after he gets off work tonight. Reason for Disposition [1] SEVERE pain (e.g., excruciating, unable to do any normal activities) AND [2] not improved 2 hours after pain medicine Answer Assessment - Initial Assessment Questions 1. LOCATION: Top and bottom on left side 2. ONSET: a few weeks ago 3. SEVERITY: Severe 4. SWELLING: Yes, but it is hidden by salazar 5. OTHER SYMPTOMS: Denies, headache pounding 6. : N/A Protocols used: [id number] documented in this encounter [facility] Evaluation note Note Date & Type Note Facility Evaluation note Diagnosis Muscular chest pain- Primary documented in this encounter [facility] Evaluation note Note Date & Type Note Facility Evaluation note Diagnosis Nausea and vomiting, unspecified vomiting type- Primary Hepatic steatosis Other chronic nonalcoholic liver disease Abdominal pain, unspecified abdominal location documented in this encounter [facility] Evaluation note Note Date & Type Note Facility Evaluation note Diagnosis Generalized abdominal pain- Primary Abdominal pain, generalized Nausea and vomiting, unspecified vomiting type documented in this encounter [facility] Discharge instructions Attachments Note Date & Type Note [facility] Discharge instructions The following attachments cannot be sent through Care Everywhere.Chest Pain: Musculoskeletal (Citizen Of [place])documented in this encounter [facility] Discharge instructions Attachments Note Date & Type Note [facility] Discharge instructions The following attachments cannot be sent through Care Everywhere.Cannabinoid Hyperemesis Syndrome (Citizen Of [place])documented in this encounter [facility] Summary Purpose Family History No Family History Records FoundNo Family History Records FoundNo Family History Records Found Advance Directives No Advanced Directives Records FoundNo Advanced Directives Records FoundNo Advanced Directives Records Found Additional Source Comments (unrecognized sect ion and content) No Status Records FoundNo Status Records FoundNo Status Records Found INFORMATION SOURCE (unrecogn ized section and content) DATE CREATED AUTHOR 09/25/2022 [facility] DATE CREATED AUTHOR AUTHOR'S ORGANIZ ATION 10/11/2022 [facility] DATE CREATED AUTHOR AUTHOR'S ORGANIZ ATION 08/21/2024 [facility] <item><item> Privacy Markings (unrecogniz ed section and content) Section Author: Amairani Penaloza PROHIBITION ON REDISCLOSURE OF CONFIDENTIAL INFORMATION This notice accompanies a disclosure of information concerning a client made to you with the consent of such client. Section Author: Amairani Penaloza PROHIBITION ON REDISCLOSURE OF CONFIDENTIAL INFORMATION This notice accompanies a disclosure of information concerning a client made to you with the consent of such client. Source Comments (unrecognize d section and content) In the event this informatio n is protected by the Federal Confidentiality of Alcohol and Drug Abuse Patient Records regulations: The Federal rules restrict any use of the information to criminally investigate or prosecute any alcohol or drug abuse patient.[facility] Reason for Visit (unrecogniz ed section and content) Reason Comments Toothache Reason Comments Chest Pain Reason Comments Nausea Vomiting Chest pain Reason Comments Vomiting Abdominal Pain CP, abdominal pain, back pain, SOB, vomiting and chills/ sweating. States he was seen last night and not feeling better Ordered Prescriptions (unrec ognized section and content) Prescription Sig Dispense Quantity Refills Last Filled Start Date End Date cyclobenzaprine (FLEXERIL) 5 mg tablet Take 1 tablet (5 mg total) by mouth 3 (three) times a day for 7 days. 21 each 08/20/2024 08/27/2024 ibuprofen (ADVIL,MOTRIN) 800 mg tablet Take 1 tablet (800 mg total) by mouth 3 (three) times a day for 7 days. 21 tablet 08/20/2024 08/27/2024 Prescription Sig Dispense Quantity Refills Last Filled Start Date End Date pantoprazole (PROTONIX) 40 mg EC tablet Take 1 tablet (40 mg total) by mouth 1 (one) time each day before breakfast for 30 doses. Do not crush, chew, or split. 30 each 11/24/2024 5 clarithromycin (BIAXIN) 500 mg tablet Take 1 tablet (500 mg total) by mouth 2 (two) times a day for 10 days. 20 tablet 11/24/2024 5 amoxicillin (AMOXIL) 500 mg tablet Take 2 tablets (1,000 mg total) by mouth every 12 (twelve) hours for 10 days. 40 tablet 11/24/2024 5 ondansetron (ZOFRAN) 4 mg tablet Take 1 tablet (4 mg total) by mouth every 12 (twelve) hours if needed for nausea or vomiting for up to 10 doses. 10 tablet 11/24/2024 Scheduled Active and Recently Administ ered Medications (unrecognized section and content) Medication Order 08/18/2024 08/19/2024 08/20/2024 iopamidoL (ISOVUE-300) 300 mg iodine /mL (61 %) solution 100 mL (COMPLETED) 100 mL, intravenous, Once in imaging, Starting on 08/20/24 at 1014, For 1 dose 1050 (Given - Provid er: Pito Tao) morphine injection 4 mg (COMPLETED) 4 mg, intravenous, Once, On 08/20/24 at 0909, For 1 dose 0921 (Given - Provid er: Betzaida Mcmahon RN) ondansetron (PF) (ZOFRAN) injection 4 mg (COMPLETED) 4 mg, intravenous, Once, On 08/20/24 at 0909, For 1 dose 0921 (Given - Provid er: Betzaida Mcmahon RN) sodium chloride 0.9 % flush 10 mL (COMPLETED) 10 mL, intravenous, Once in imaging, Starting on 08/20/24 at 1014, For 1 dose 1051 (Given - Provid er: Pito Tao) Scheduled Medication Order 11/22/2024 11/23/2024 11/24/2024 diphenhydrAMINE (BENADRYL) injection 25 mg (COMPLETED) 25 mg, intravenous, Once, On Mercedes 11/24/24 at 0440, For 1 dose 050 (Given - Provid er: Anaid Jacques RN) ketorolac (TORADOL) injection 15 mg (COMPLETED) 15 mg, intravenous, Once, On Mercedes 11/24/24 at 0440, For 1 dose 050 (Given - Provid er: Anaid Jacques RN) metoclopramide (REGLAN) injection 5 mg (COMPLETED) 5 mg, intravenous, Once, On Mercedes 11/24/24 at 0440, For 1 dose, Doses LESS than or equal to 10 mg can be given IV push undiluted over 1 minute 050 (Given - Provid er: Anaid Jacques RN) sodium chloride 0.9 % bolus 1,000 mL (COMPLETED) 1,000 mL, intravenous, at 2,000 mL/hr, Administer over 30 Minutes, Once, On Mercedes 11/24/24 at 0440, For 1 dose 0508 (New Bag - Prov ider: Anaid Jacques RN)0540 (Stopped - Provider: Anaid Jacques RN) Scheduled Medication Order 11/22/2024 11/23/2024 11/24/2024 diphenhydrAMINE (BENADRYL) injection 25 mg (COMPLETED) 25 mg, intravenous, Once, On Mercedes 11/24/24 at 2130, For 1 dose 213 (Given - Provid er: Paula Pitt RN) droPERidol (INAPSINE) injection 1.25 mg (COMPLETED) 1.25 mg, intravenous, Once, On Mercedes 11/24/24 at 2130, For 1 dose, Emergency Departments, Operating areas, and Post-operative areas (one time doses) for patients who FAIL TO SHOW ADEQUATE RESPONSE to other treatments: -For doses GREATER than OR equal to 2.5 mg, ECG monitoring should be performed prior to treatment and continued for 2 to 3 hours after completing treatment -For doses LESS than 2.5 mg, ECG monitoring is NOT required Head Pain units if other agents are unsuccessful (MAX of 2.5 mg three times daily): -Monitor ECG at baseline and daily while on regimen, Has the patient failed to show an adequate response to other treatments? (See order restrictions above): Yes, Is a droperidol dose GREATER than OR equal to 2.5 mg being ordered? No 2139 (Given - Provid er: Paula Pitt RN) Care Teams (unrecognized sec tion and content) Soliciting Freight Agent Relationship Specialty Start Date End Date Physician, No Pcp PCP - General 08/20/24 Soliciting Freight Agent Relationship Specialty Start Date End Date Physician, No Pcp PCP - General 08/20/24 Soliciting Freight Agent Relationship Specialty Start Date End Date Physician, No Pcp PCP - General 08/20/24 FOR RECORDS PERTAINING TO PATIENTS WHO ARE OR HAVE BEEN ENROLLED IN A CHEMICAL DEPENDENCY/SUBSTANCEABUSE PROGRAM, SOME INFORMATION MAY BE OMITTED. This clinical summary was aggregated from multiple sources. Caution should be exercised in using it in the provision of clinical care. This summary normalizes information from multiple sources, and as a consequence, information in this document may materially change the coding, format and clinical context of patient data. In addition, data may be omitted in some cases. CLINICAL DECISIONS SHOULD BE BASED ON THE PRIMARY CLINICAL RECORDS. [facility]. provides no warranty or guarantee of the accuracy or completeness of information in this document.
[2024-11-28 05:02] LABS: Red Blood Cells-Urine 0-5 SEEN /hpf (0-5)
[2024-11-28 05:12] LABS: Barbiturate Urine NEGATIVE (< 200 ng/mL); Benzodiazepine Urine NEGATIVE (< 200 ng/mL); PCP Urine NEGATIVE (< 25 ng/mL); THC Urine PRESUMPTIVE POSITIVE (< 50 ng/mL)
[2024-11-28 05:57] LABS: Troponin T High Sens 2 HR < 6 ng/L (<=22)
--- NOTE | 2024-11-28 06:35 | US_ITS ---
PROCEDURE: GALLBLADDER 11/28/2024 REASON FOR EXAM: ABD PAIN, MILDLY ELEVATED BILI TECHNIQUE: Procedure Code: USGB Modality: US Procedure: GALLBLADDER COMPARISON: None FINDINGS: Liver: Echotexture of the liver is mildly increased. Periportal echoes remain. Mild decreased acoustic penetration. No intrahepatic biliary ductal dilation is seen. The liver is 15.8 cm in size. Color and spectral Doppler flow is present within the hepatopetal portal vein. Gallbladder: Negative sonographic Dean's sign. No calculi, wall thickening or pericholecystic fluid at this time. Common bile duct: Normal measuring 4 mm. Pancreas: The mid to distal tail is obscured by bowel gas. Pancreas is otherwise normal. Kidney: Right kidney is 10.4 x 5.5 x 5.4 cm. No collecting system dilation, calculus or mass. US/Gallbladder IMPRESSION: No acute abnormality. No significant biliary ductal dilation. Reading Location: [id number]
[2024-11-28] MEDS: Lidocaine 2% Viscous15 ML UDC 15 ML PO (06:38)
[2024-11-28] MEDS: Pantoprazole Sodium 40 MG in 0.9% Normal Saline (100mL MB+) 100 ML 300 MG IV (07:22)
[2024-11-28 08:35] LABS: Troponin T High Sensitivity 11 ng/L (<=22)
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
== END 2024-11-28 13:13 | disposition home or self-care (01) ==
PROVIDERS: Emergency Medicine; Emergency Provider Emergency Medicine; PCP Family Medicine; Visit Provider Emergency Medicine
DX: R10.A2 Flank pain, left side (principal); R10.11 Right upper quadrant pain; R07.9 Chest pain, unspecified; F32.A Depression, unspecified; Z63.4 Disappearance and death of family member
CPT/HCPCS: 71046; 76705; 80053; 80307; 81001; 82550; 83690; 84484; 85025; 93005; 96361; 96365; 96366; 96375; 99285; A4216; J2405

== ENCOUNTER 2024-12-06 14:22 | Emergency (ER) | payer OTHER, SELFPAY ==
[2024-12-06] VITALS (10 sets, daily range): BP systolic 119–140; BP diastolic 76–96; PULSE 64–109; RESP 11–21; TEMP 36.4–36.6; O2SAT 95–99; BMI 30.9
--- NOTE | 2024-12-06 14:33 | EKG12_ITS ---
Test Reason : CP Blood Pressure : */* mmHG Vent. Rate : 102 BPM Atrial Rate : 102 BPM P-R Int : 154 ms QRS Dur : 88 ms QT Int : 342 ms P-R-T Axes : 51 64 60 degrees QTcB Int : 445 ms Sinus tachycardia Otherwise normal ECG Confirmed by JO-ANN TATUM, BRIELLE ([id number]), technical writer and editor KIAH EL ([id number]) on 12/07/2024 10:51:13 AM Referred By: TB Confirmed By: BRIELLE BUSCH MD
--- NOTE | 2024-12-06 14:55 | ED.VIS.CHEST ---
HPI History of Present Illness Chief Complaint: Chest Pain Informant: patient Narrative Narrative: Patient is a 34-year-old male with no significant PMHx presenting with acute onset chest and back pain. - Reports chest discomfort radiating to the left side and mid-back, described as tightness, making it difficult to breathe and ambulate. - Pain began approximately one hour ago while working out and is exacerbated by movement and respiration. - Denies history of asthma. - Associated with a non-productive cough; denies fevers. - Denies abdominal pain, leg swelling, or calf pain. - No history of blood clots, recent travel, or surgery. - Has chronic lower back pain, typically worse at night, but notes that today's pain is localized to the left (opposite usual) side. - Recently hospitalized overnight at [facility] for chest pain, nausea, emesis, and syncope, but states that today's symptoms are different. Patient was seen here 1 week ago for left-sided abdominal and chest pain. At that time the ED physician documented that the patient has had multiple other ED visits at surrounding hospitals, including in the ER the night before his prior visit here and had CTA of the chest and abdomen pelvis all of which was negative. Used to live in [place] but is new to [place] for the past 8 months. Also in the past was diagnosed and treated for H. pylori although he has not been on treatment recently, when he was admitted overnight at outside hospital 1.5 or so weeks ago, he was discharged on pantoprazole and Carafate. [facility] Medical History (Updated 12/06/24 @ 17:[address] David Tam MD) Chronic low back pain Anxiety H. pylori infection Home Medications ?Medication ?Instructions ?Recorded ?Last Taken ?Type famotidine 40 mg tablet (Pepcid) 40 mg PO DAILY #30 tabs 11/28/12 11/27/24 Rx prochlorperazine maleate 10 mg 10 mg PO TID PRN PRN 11/28/12 Unknown Rx tablet Nausea/Vomiting #20 tabs doxycycline monohydrate 100 mg 100 mg PO BID ##20 01/14/14 11/27/24 Rx capsule (Monodox) hydrocodone-acetaminophen 5-325mg 1 tab PO Q6H PRN PRN Pain 3 days 11/28/24 Unknown Rx 5mg-325mg #10 TABLETS Allergy/AdvReac Type Severity Reaction Status Date / Time promethazine HCl (From AdvReac Nausea Verified 12/06/24 14:22 Phenergan) Family History no significant family his Surgical History Hx of appendectomy Hx of adenoidectomy Social History Smoking Status: Never smoker ROS ROS ED Constitutional Constitutional ED: Denies chills or fever(s) Eyes Eyes: Denies change in vision or diplopia ENT ENT ED: Denies rhinorrhea or sore throat Cardiovascular Cardiovascular: Reports as per HPI and chest pain; Denies leg edema, palpitations, pedal edema or radiating jaw, neck or arm pain Respiratory/Chest Respiratory/Chest: Reports cough and dyspnea Gastrointestinal Gastrointestinal: Denies abdominal pain, diarrhea, nausea or vomiting Genitourinary Genitourinary ED: Denies dysuria or hematuria Musculoskeletal Musculoskeletal: Reports back pain; Denies extremity pain or neck pain Integumentary Denies abscess or rash Neurologic Neurologic: Denies headache(s), paresthesias or weakness Psychiatric Psychiatric: Denies suicidal thoughts EXAM Physical Exam Const Vital Signs: 12/06/24 14:23 12/06/24 15:07 12/06/24 15:10 Temperature 97.6 F L Temperature Source Temporal Pulse Rate 109 H Respiratory Rate 16 Respiratory Effort Normal Non-Labored Blood Pressure 140/96 H Blood Pressure Mean 110 Pulse Ox 99 Oxygen Delivery Method Room Air Room Air 12/06/24 15:25 12/06/24 15:30 12/06/24 15:45 Temperature Temperature Source Pulse Rate 94 93 89 Respiratory Rate 16 21 H 20 H Respiratory Effort Blood Pressure 124/81 H 119/79 Blood Pressure Mean 93 92 Pulse Ox 98 95 96 Oxygen Delivery Method Room Air Room Air 12/06/24 16:00 12/06/24 16:00 12/06/24 16:15 Temperature Temperature Source Pulse Rate 90 87 Respiratory Rate 11 L 18 Respiratory Effort Blood Pressure 136/91 H Blood Pressure Mean 104 Pulse Ox Oxygen Delivery Method 12/06/24 16:30 12/06/24 16:45 12/06/24 17:00 Temperature Temperature Source Pulse Rate 83 86 94 Respiratory Rate 18 19 H 19 H Respiratory Effort Blood Pressure 131/89 H Blood Pressure Mean 102 Pulse Ox 99 97 95 Oxygen Delivery Method Room Air Positive well nourished and well developed General Appearance ED: well developed and NAD HEENT Reports moist mucous membranes normocephalic and atraumatic Eyes PERRL and EOMs intact bilaterally Neck full ROM and supple Resp normal respiratory effort and clear to auscultation bilaterally Resp Narrative: Conversive in full senses. Well-appearing no distress. No splinting with deep inspiration. Cardio regular rate, regular rhythm and no murmurs GI non-tender and non-distended Auscultation: normoactive bowel sounds Palpation: soft Back/Spine no CVA tenderness Back/Spine Narrative: Mild tenderness throughout the left low-mid back no crepitance or specific rib tenderness. No rashes. No midline spinal tenderness. General Back: other FROM Extremity normal to inspection Extremity Narrative: No calf tenderness bilaterally. General Extremety ED: Negative for edema, pulses abnormal or tenderness General Extremity: Negative for edema or pulses abnormal Neuro oriented x3, CN's II-XII intact bilaterally and no sensory deficits noted Sensorium / Orientation: awake and alert Motor Exam: strength 5/5 throughout Skin no rashes or lesions noted and no wounds Heart Score History: Slightly/Non-Suspicious ECG: Normal Age: </= 45 years Risk Factors: No Risk Factors Troponin: </= Normal Limit Score: 0 MDM MDM MDM Narrative Medical decision making narrative: Assessment: The patient is a 34-year-old male presenting for acute left-sided chest tightness and what sounds like separate, chronic pain of the [id number] that began approximately one hour prior to arrival while working out. Symptoms worsen with deep inspiration, movement, and ambulation. Prior ED visit/admission a few nights ago included a negative chest CTA for PE. Current EKG is normal and initial and delta troponins are negative, making acute coronary syndrome unlikely. Chest X-ray 2 views on my interpretation shows no pneumothorax or pneumonia. Given the history, HEART score of zero, exertional onset, and absence of PE risk factors or cardiopulmonary findings, musculoskeletal chest wall strain is the most likely etiology. Plan: - Administered analgesic in ED; pain improved somewhat. - Provided reassurance that cardiac and thromboembolic causes ruled out; discussed musculoskeletal etiology. - Discharge home with instructions for rest, NSAID use as needed, and return precautions for worsening pain, dyspnea, or new symptoms. - Follow-up with primary care if pain persists or recurs. Diagnostics: - EKG: normal tracing; no ischemic changes or arrhythmia. Independently interpreted by David maguire. - Chest X-ray: clear lung brar; no pneumothorax; cardiac silhouette normal. - Labs: initial and delta troponins negative. Reevaluations: - Delta troponin resulted negative; patient comfortable, vitals stable; no new complaints. PROBLEMS ADDRESSED - [x] Patient presents with a problem that potentially represents a highly morbid condition with a possible threat to life or bodily function: Chest pain DATA REVIEWED AND ANALYZED Category 1 - Additional history was required and obtained from: - Prior external documentation reviewed: - Prior test results reviewed: [x] Radiographs - [x] Tests were ordered and the results were independently reviewed by me: Chest X-ray - [x] Tests considered but not ordered: CT scan for PE work-up was considered but not ordered given the recent negative CTA of the chest and lack of risk factors Category 2 - [x] Tests were independently interpreted by me: - Chest X-ray is normal without evidence of a collapsed lung, pneumonia, or other acute cardiopulmonary abnormality. Independently interpreted by David maguire. Category 3 - Discussion of management with another professional: - [ ] Records Associate - [ ] Admitting service - [ ] Clinical Pharmacy - [ ] Radiology - [ ] Behavioral Health PATIENT MANAGEMENT - [x] Considered hospitalization or emergent surgery/procedure: Admission was considered due to the chest discomfort; however, with negative troponin, reassuring EKG, normal chest X-ray, and recent negative CTA for PE, the patient was deemed stable and was discharged with supportive care. History & Record Review Additional record(s) reviewed:: Prior ED visit Lab Data Attestation: I reviewed the patient's lab results. Labs: Laboratory Results - last 24 hr 12/06/24 12/06/24 15:00 17:10 WBC 8.4 RBC 5.68 Hgb 14.8 Hct 44.3 MCV 78.0 L MCH 26.1 L MCHC 33.4 RDW Std Deviation 38.8 RDW Coeff of Rolando 13.7 Plt Count 334 MPV 9.3 Immature Gran % (Auto) 0.200 Neut % (Auto) 49.4 Lymph % (Auto) 41.8 H [place] % (Auto) 6.2 Eos % (Auto) 1.7 Baso % (Auto) 0.7 Absolute Neuts (auto) 4.1 Absolute Lymphs (auto) 3.50 Nucleated RBC % 0 Sodium 137 Potassium 3.7 Chloride 103 Carbon Dioxide 21.5 Anion Gap 13 BUN 16 Creatinine 1.08 Estim Creat Clear Calc 110.73 Est GFR (MDRD) Non-Af 93 BUN/Creatinine Ratio 14.4 Glucose 94 Calcium 9.2 Troponin T High Sens < 6 D Troponin T Hi Sens 2 Hr < 6 Radiography Diagnostic Testing: Clinical Impression(s) from Imaging Studies Chest X-Ray 12/06/24 15:08 IMPRESSION: No focal abnormality is seen. Reading Location: [facility] Rhythm Strip Rhythm Strip: Sinus Tach Rate: 109 Ectopy: None EKG Initial EKG: Attestation: I personally reviewed and interpreted this EKG as follows: Interpretation: No Acute Injury Pattern and Sinus Tachycardia Comments: Nml axis & intervals; nml EKG Prior EKG tracings: available for review Discharge Plan Triage Chief Complaint: Chest Pain ED Provider: David Tam Dx/Rx/DC Orders Clinical Impression: Chest pain, unspecified, Strain of muscle and tendon of front wall of thorax, initial encounter Instructions: ED Chest Wall Strain Prescriptions: No Action famotidine [Pepcid] 40 MG tablet 40 mg PO DAILY Qty: 30 0RF prochlorperazine maleate 10 MG tablet 10 mg PO TID PRN PRN (Reason: Nausea/Vomiting) Qty: 20 0RF doxycycline monohydrate [Monodox] 100 MG capsule 100 mg PO BID Qty: 20 0RF hydrocodone-acetaminophen 5-325 mg tablet 1 tab PO Q6H PRN PRN (Reason: Pain) 3 Days Qty: 10 0RF Primary Care Provider: Eric Cleveland Referrals: Eric Cleveland MD [Primary Care Provider, Medical] - 1 Week if not improving Activity Restrictions/Additional Instructions: - Your EKG, chest X-ray, and repeat troponin test all returned normal. - Your recent CTA of the chest (less than 2 weeks ago) was negative for a blood clot. - Findings are most consistent with musculoskeletal chest pain. Print Language: [place] Disposition Disposition: Home, Self Care
--- NOTE | 2024-12-06 15:08 | RAD_ITS ---
PROCEDURE: CHEST 1 VIEW (PORTABLE) 12/06/2024 REASON FOR EXAM: CHEST PAIN TECHNIQUE: Frontal view of the chest. COMPARISON: November 28, 2024. FINDINGS: Hardware: EKG electrodes are seen. Heart: The heart size is normal. Lungs: Limited inspiratory effort. No focal infiltrate is seen. Bones: The bones are unremarkable. RAD/Chest 1 View (Portable) IMPRESSION: No focal abnormality is seen. Reading Location: [place] [id number]
[2024-12-06 15:26] LABS: Hematocrit 44.3 % (40-54); Hemoglobin 14.8 g/dL (13.0-16.5); Immature Granulocytes Count 0.020 X10^3/uL (0.0-0.0); Mean Corp Hgb Conc 33.4 g/dL (32-36); Mean Corpuscular Volume 78.0 fL (80-94); Mean Platelet Vol. 9.3 fl (6.2-12.0); NRBC Flagged by Analyzer 0 % (0-5); Platelet Count 334 K/mm3 (150-450); RBC Distribution Width CV 13.7 % (11.6-14.6); RBC Distribution Width SD 38.8 fl (35.1-43.9); Red Blood Count 5.68 M/mm3 (4.6-6.2); White Blood Count 8.4 K/mm3 (4.4-11.0)
[2024-12-06 16:06] LABS: Anion Gap 13 (5-15); BUN 16 mg/dL (4-19); BUN/Creat Ratio 14.4 RATIO (10-20); Calcium,Total 9.2 mg/dL (7.6-11.0); Carbon Dioxide 21.5 mmol/L (21.0-32.0); Chloride 103 mmol/L (98-108); Estimated Creatinine Clearance 110.73 ml/min (50-250); Glucose 94 mg/dL (70-99); Potassium 3.7 mmol/L (3.3-5.1); Troponin T High Sensitivity < 6 ng/L (<=22)
[2024-12-06 17:43] LABS: Troponin T High Sens 2 HR < 6 ng/L (<=22)
== END 2024-12-06 18:33 | disposition home or self-care (01) ==
PROVIDERS: Emergency Provider Emergency Medicine; PCP Family Medicine; Visit Provider Emergency Medicine
DX: R07.89 Other chest pain (principal); S29.011A Strain of muscle and tendon of front wall of thorax, initial encounter; X58.XXXA Exposure to other specified factors, initial encounter
CPT/HCPCS: 71045; 80048; 84484; 85025; 93005; 99283; A4216